=== PATIENT | female | born 1940 | race Caucasian/White ===

== ENCOUNTER → 2023-07-05 13:57 | Outpatient (REF) | payer OTHER, SELFPAY | LOC: WDC 13:57 | PROVIDERS: ATTENDING PHYSICIAN Family Medicine | DX: Z12.31 Encounter for screening mammogram for malignant neoplasm of breast (principal) | CPT/HCPCS: 77063; 77067 ==

== ENCOUNTER 2024-02-17 23:29 | Emergency (ER) | payer OTHER, SELFPAY ==
[2024-02-17 23:32] VITALS: BP 160/80; BMI 23.5
[2024-02-17 23:33] VITALS: BP 160/80
--- NOTE | 2024-02-17 23:52 | ED.MUSCINJ ---
HPI-Injury
General
Chief Complaint: Fall
Source: patient
Exam Limitations: none
Time Seen by Provider: 02/17/24 23:43
History of Present Illness-Injury
Is this injury a work related problem?: No
Is pt an associate of [facility]?: No
Initial Injury comments:
This is a 84 year old female that comes in by ambulance with c/o left shoulder pain. States that she was closing the bedroom door and she fell. States that she was unable to get up. States that she did not hit her head or have any LOC. Denies any
fever, chills, chest pain, SOB, abd pain, nausea, vomiting, diarrhea, headache, dizziness, urinary burning.
Past History
Past History
ED Past Medical History: HTN, Hypercholesterolemia and Other (glaucoma, Macular degeneration)
ED Past Surgical History: Appendectomy, Gynecological (Hysterectomy) and Other (Eye surgery,)
Social History
Tobacco: Non-smoker
Alcohol: Occasional
Drug: None
Personal:
Living: with family
Family History
Family History: Other (Mother and sister with gallbladder disease but)
Review of Systems
Review of Systems
All Other Systems: ROS reviewed and negative except as documented in HPI and ROS
Constitutional: Reports no symptoms; Denies fever or chills
EENT: Reports no symptoms
Respiratory: Reports no symptoms; Denies cough or trouble breathing
Cardiac: Reports no symptoms; Denies chest pain
ABD/GI: Reports no symptoms; Denies abdominal pain, nausea, vomiting or diarrhea
: Reports no symptoms; Denies dysuria, frequency or urgency
Musculoskeletal: Reports joint pain (Left shoulder pain)
Skin: Reports no symptoms
Neurological: Reports no symptoms; Denies dizzy or headache
Psychiatric: Reports no symptoms
Musculoskeletal Injury Exam
Musculoskeletal Injury Exam
Left Anterior Shoulder:
Pain with Movement?: Mild
Tender to palpation?: Mild
Soft tissue swelling?: Mild
External deformity and angulation?: Mild
Joint effusion?: None
Contusion?: None
Hematoma-local bleeding into tissue?: None
Strain- Sprain- Tear (Connective tissue injury)?: None
Crepitus with movement?: No
Joint instability?: Yes
Malalignment/deformity?: Yes
Range of motion: Limited (Due to pain)
Distal skin color and temperature: normal-warm & good color
Capillary Refill: normal
Normal distal neurovascular exam?: Yes
Phy Exam
General Physical Exam
General Presentation: mild distress
General age: appears stated age
General Skin: warm and dry
General Habitus: elderly
General Mental: alert
General Hydration: appears well hydrated
ENT Exam
ENT Exam: TM's normal, pharynx normal and neck supple
Eye Exam
Eye Exam: EOMI
Cardiovascular Exam
Cardiovascular Exam: regular rate/rhythm, normal peripheral pulses and other (Murmur)
Pulmonary Exam
Pulmonary Exam: no respiratory distress, no rales, chest non tender, no rhonchi, no wheezing, no cough and other (Fine crackles at bases)
Gastrointestinal Exam
Gastrointestinal Exam: normal bowel sounds, non tender, soft, no organomegaly, no pulsatile mass and non distended
Musculoskeletal Exam
Musculoskeletal Exam: other (Left shoulder tenderness with limited ROM, Patient can move fingers, wrist and flex elbow with some shoulder discomfort. )
Skin Exam
Skin Exam: normal color, warm/dry, no rash and no petechia
Psychiatric Exam
Psychiatric Exam: normal mood/affect
Injury Course
Orders/Labs/Results
Orders:
Orders
02/17/24 23:52
Acetaminophen [Tylenol] 1,000 mg PO NOW STA
02/18/24 00:00
CR Shoulder - Left Min 2 View* Urgent
Reason For Exam: Fall, Left shoulder pain
02/18/24 01:06
Sling Left-Treatment ONCE
MDM/Problems Addressed
Differential Diagnosis Includes:
fracture shoulder, Shoulder dislocation.
MDM/Problems Addressed:
This is a 84 year old female that comes in with c/o fall. States that she fell on the left shoulder and then she was unable to get up.
Will get x-ray of the left shoulder and medicate for pain
back into see patient and family. Explained that she does have a fracture of the left shoulder. Will place patient in a sling and have patient follow up with the surgical specialist. Ice to the shoulder to help control pain. patient can alternate
with Tylenol 1000mg every 6 hours for pain and Ibuprofen 600mg every 6 hours with food. Patient to return with any concerns.
Chronic conditions affecting care:
NA
Acute Exacerbation and/or Progression of Chronic Illness:
NA
*Radiology
Radiology exam reviewed: preliminary read by ED provider ( LEFT SHOULDER= Proximal humeral head fracture)
*Pulse Oximetry
Patient hypoxic: no
*EKG
Interpreted by ED Provider?: NA
Rate: EKG- N/A
*Ship Design Teacher Interpretation
Rate: Ship Design Teacher- N/A
*Critical Care Note
Total Time (30-74mins, 75-104mins- exclusive of procedures): Not Applicable
ED Attending Note
-
Portions of this chart may have been created with voice recognition software.� Occasional wrong word or��sound alike� substitutions may have occurred due to the inherent limitations of voice recognition software.
Discharge Plan
Departure
Patient Disposition: Home (Routine Discharge)
Date of Disposition: 02/18/24
Time of Disposition: 01:09
Patient with high blood pressure during this ER visit?: Yes
Condition: Good
Covid-19: Not Applicable
Discharge Problem:
Fracture of left upper limb
Instructions: Preventing falls in adults, How to Use a Shoulder Sling, Upper Arm Fracture ED, BLOOD PRESSURE
Prescriptions:
No Action
atorvastatin 10 MG tablet
10 mg PO DAILY
aspirin 81 MG tablet,chewable
81 mg PO DAILY
metoprolol succinate 50 MG tablet extended release 24 hr
50 mg PO DAILY
lisinopril 20 MG tablet
20 mg PO DAILY
bimatoprost [Lumigan] 1 DROP drops
1 drp BOTH EYES HS
allopurinol 300 MG tablet
300 mg PO DAILY
Centrum Silver 1 EACH tablet
1 tab PO DAILY
calcium carbonate [Oyster Shell Calcium 500] 500 MG tablet
500 mg PO TID
RisaQuad 1 CAP capsule
1 cap PO BID Qty: 30 0RF
flaxseed oil 1,000 mg Capsule
1,000 mg PO BID
allopurinol 300 mg Tablet
300 mg PO DAILY
dorzolamide 2 % Drops
1 drp OPHTHALMIC (EYE) BID
Rocklatan 0.02-0.005 % Drops
1 drp OPHTHALMIC (EYE) QPM
iVizia (PF) 0.5 % Drops
OPHTHALMIC (EYE)
Metamucil
Prevacid
timolol maleate
Referrals:
Eugene Shetty MD [Active] - Follow up in 2-3 days
Steven Felix MD [Family Provider] -
Activity Restrictions/Additional Instructions:
As discussed, you have a fracture of the proximal humeral head. Please wear the sling when you are up moving around. Remove the sling to sleep and rest your arm on a pillow. Please call the Orthopedic office tomorrow and get into see the Orthopedic
specialist. You may use Tylenol 1000mg every 6 hours for pain and alternate with Ibuprofen 600mg every 6 hours with food for pain. Please use ice to the shoulder to help decrease the pain. IF YOU HAVE INCREASED OR CHANGING PAIN, OR YOU HAVE ANY
OTHER CONCERNS PLEASE RETURN TO THE EMERGNCY ROOM.
Interventions
Interventions:
*Risk Screen - Suicide Last Done: 02/17/24 23:32
*General Assessment Last Done: 02/17/24 23:32
*Neglect/Abuse Screening Last Done: 02/17/24 23:32
*ED COVID-19 Vaccine History Last Done: 02/17/24 23:32
ED-Musculoskeletal Assessment Last Done: 02/17/24 23:32
ED- Neurological Assessment Last Done: 02/17/24 23:32
ED-Skin Assessment Last Done: 02/17/24 23:32
Discharge Date and Time
Print Language: BELIZEAN
[2024-02-17] MEDS: TYLENOL 1000 MG PO (23:54)
[2024-02-18 00:38] VITALS: BP 155/68
== END 2024-02-18 01:28 | disposition home or self-care (01) ==
LOC: EMR 23:29
PROVIDERS: EMERGENCY PHYSICIAN Emergency Medicine; FAMILY PHYSICIAN Family Medicine
DX: S42.202A Unspecified fracture of upper end of left humerus, initial encounter for closed fracture (principal); W19.XXXA Unspecified fall, initial encounter; I10 Essential (primary) hypertension
CPT/HCPCS: 99283; 73030

== ENCOUNTER 2024-03-14 20:19 | Emergency (ER) | payer OTHER, SELFPAY ==
[2024-03-14 20:22] VITALS: BP 149/61
[2024-03-14 21:00] VITALS: BP 143/61
--- NOTE | 2024-03-14 21:28 | ED.MUSCINJ ---
HPI-Injury
General
Chief Complaint: Fall
Source: patient and records
Exam Limitations: none
Time Seen by Provider: 03/14/24 21:13
Nursing documentation reviewed up to this point in time: agreed with
History of Present Illness-Injury
Is this injury a work related problem?: No
Is pt an associate of [facility]?: No
Initial Injury comments:
84-year female left shoulder pain status post fall few weeks ago seen here had a nondisplaced humerus fracture followed up with orthopedics wound was healing well, scheduled for an x-ray next week using her sling occasionally, pain is worse at night
no fevers, has hydrocodone not terribly effective for her, thus unclear how much she is taking no pain now when she is resting
Past History
Past History
ED Past Medical History: HTN, Hypercholesterolemia and Other (glaucoma, Macular degeneration)
ED Past Surgical History: Appendectomy, Gynecological (Hysterectomy) and Other (Eye surgery,)
Social History
Tobacco: Non-smoker
Alcohol: Occasional
Drug: None
Personal:
Living: with family
Family History
Family History: Other (Mother and sister with gallbladder disease but)
Review of Systems
Review of Systems
All Other Systems: Not applicable
ABD/GI: Reports no symptoms
: Reports no symptoms
Musculoskeletal: Reports joint pain
Phy Exam
Physical Exam
Physical Exam:
Physical Exam
General: no apparent distress, not acutely ill
Neck: No jaundice no tongue bite,
Heart: s1/s2 regular rate and rhythm, no murmur. equal radial pulses.
Lungs: no acute respiratory distress.
Neuro: alert and oriented. no focal neurological deficits
Skin: no rash
Psychiatric: well kept. interactive and cooperative
Extremities: Minimal pain around the left shoulder ecchymosis in the left mid humerus area strong radial pulse bilaterally
Injury Course
Orders/Labs/Results
Orders:
Orders
03/14/24 21:10
Humerus, Left 2 Views [CR Humerus - Left Min 2 Views*] Urgent
Comment:
Reason For Exam: Follow-up fracture
03/14/24 21:23
Ondansetron Orally Disint [Zofran Odt (Orally Disintegrating)] 4 mg PO NOW STA
Oxycodone [Roxicodone] 5 mg PO NOW STA
MDM/Problems Addressed
Differential Diagnosis Includes:
Pain from healing fracture late onset delayed displaced fracture, contusion
MDM/Problems Addressed:
Fracture pain
*Radiology
Radiology exam reviewed: preliminary read by ED provider
*Pulse Oximetry
Patient hypoxic: no
*Critical Care Note
Total Time (30-74mins, 75-104mins- exclusive of procedures): Not Applicable
Update Note
Update Note:
Medications reviewed with patient she wants something to help her at nighttime sounds like hydrocodone is not working very well, will encouraged her to sleep propped up use her sling will give her some oxycodone with stool softeners and Zofran
X-ray noted, question expected changes/healing, prior x-ray noted not terribly different
ED Attending Note
-
Portions of this chart may have been created with voice recognition software.� Occasional wrong word or��sound alike� substitutions may have occurred due to the inherent limitations of voice recognition software.
Discharge Plan
Departure
Patient Disposition: Home (Routine Discharge)
Date of Disposition: 03/14/24
Time of Disposition: 21:56
Patient with high blood pressure during this ER visit?: No
Condition: Good
Discharge Problem:
Fracture, humerus closed
Prescriptions:
No Action
atorvastatin 10 MG tablet
10 mg PO DAILY
aspirin 81 MG tablet,chewable
81 mg PO DAILY
metoprolol succinate 50 MG tablet extended release 24 hr
50 mg PO DAILY
lisinopril 20 MG tablet
20 mg PO DAILY
allopurinol 300 MG tablet
300 mg PO DAILY
Centrum Silver 1 EACH tablet
1 tab PO DAILY
calcium carbonate [Oyster Shell Calcium 500] 500 MG tablet
500 mg PO TID
flaxseed oil 1,000 mg Capsule
1,000 mg PO BID
dorzolamide 2 % Drops
1 drp OPHTHALMIC (EYE) BID
Rocklatan 0.02-0.005 % Drops
1 drp OPHTHALMIC (EYE) QPM
iVizia (PF) 0.5 % Drops
OPHTHALMIC (EYE)
Metamucil
PO DAILY
Prevacid
PO DAILY
timolol maleate
1 drp BOTH EYES DAILY
raloxifene 60 mg Tablet
60 mg PO DAILY
Probiotic
PO DAILY
Preservision
120 mg PO DAILY
Referrals:
Steven Felix MD [Family Provider] - Follow up in 10 days
Activity Restrictions/Additional Instructions:
You can use oxycodone at nighttime, use a stool softener when you are using oxycodone do not mix with your other pain medications
Follow-up with your orthopedist as scheduled
Use your sling for comfort sit up in a chair or bed with pillows for comfort
Interventions
Interventions:
*Risk Screen - Suicide Last Done: 03/14/24 20:22
*General Assessment Last Done: 03/14/24 20:22
*Neglect/Abuse Screening Last Done: 03/14/24 20:22
ED- Fall Risk Assessment Last Done: 03/14/24 21:48
*ED COVID-19 Vaccine History Last Done: 03/14/24 20:22
ED-Musculoskeletal Assessment Last Done: 03/14/24 20:29
ED- Neurological Assessment Last Done: 03/14/24 20:29
ED-Skin Assessment Last Done: 03/14/24 20:29
Discharge Date and Time
Print Language: DIVEHI
[2024-03-14] MEDS: ROXICODONE 5 MG PO (21:44)
[2024-03-14] MEDS: ZOFRAN ODT (ORALLY DISINTEGRATING) 4 MG PO (21:44)
[2024-03-14 22:00] VITALS: BP 138/54
== END 2024-03-14 22:15 | disposition home or self-care (01) ==
LOC: EMR 20:19
PROVIDERS: EMERGENCY PHYSICIAN Emergency Medicine; FAMILY PHYSICIAN Family Medicine
DX: S42.292A Other displaced fracture of upper end of left humerus, initial encounter for closed fracture (principal); W19.XXXA Unspecified fall, initial encounter
CPT/HCPCS: 99283; 73060

== ENCOUNTER 2024-03-18 15:41 | Inpatient (IN) | payer OTHER, SELFPAY ==
[2024-03-18] VITALS (32 sets, daily range): BP systolic 105–152; BP diastolic 57–77; BMI 22.3; BMI 22.1
[2024-03-18 09:42] LABS: % Basophils 0.2 % (0-2); % Immature Granulocytes 0.6 % (0-0.5); % Lymphocytes 11.7 % (20.5-51.1); % Monocytes 3.9 % (1.7-9.3); % Neutrophils 82.6 % (42.2-75.2); Absolute Eosinophils 0.1 10^3/uL (0-0.7); Absolute Immature Granulocytes 0.1 10^3/uL (0-0.05); Absolute Lymphocytes 1.6 10^3/uL (1.2-3.4); Absolute Monocytes 0.5 10^3/uL (0.1-0.6); Absolute Neutrophils 11.5 10^3/uL (1.4-6.5); Hematocrit 25.8 % (37.0-47.0); Hemoglobin 8.6 g/dL (12.0-16.0); Mean Corp Hgb Conc. 33.3 g/dL (33.0-37.0); Mean Corpuscular Hgb 33.2 pg (27.0-31.0); Mean Corpuscular Volume 99.6 fL (81.0-99.0); Mean Platelet Volume 12.5 fL (7.4-10.4); Nucleated Red Blood Cells % 0 %; Platelet Count 139 10^3/uL (130-400); Red Blood Cell Count 2.59 10^6/uL (4.20-5.40); Red Cell Dist. Width 14.6 % (11.5-14.5)
--- NOTE | 2024-03-18 09:50 | ED.GENMED ---
History of Present Illness
General
Chief Complaint: Abdominal Pain
Source: patient
Time Seen by Provider: 03/18/24 09:38
History of Present Illness
History of Present Illness:
84-year-old female presents to the emergency room complaining of 'feeling terrible'. Patient has been feeling unwell for the past 3 to 4 days. She feels nauseous, has no appetite and feels constipated. She has also been experiencing some
abdominal pain over the past couple days. She denies any urinary symptoms. She is retching but has not brought up any vomitus. Patient states that her family has been taking her temperature at home and it has been negative. She has a sore
throat. Patient also has some pain in her left shoulder intermittently. She had a fall with a fracture of the humerus about a month ago. Of note the patient was here in the emergency room about 4 days ago and was prescribed oxycodone. Symptoms
seem to have worsened with the initiation of the oxycodone.
Past History
Past History
ED Past Medical History: HTN, Hypercholesterolemia and Other (glaucoma, Macular degeneration)
ED Past Surgical History: Appendectomy, Gynecological (Hysterectomy) and Other (Eye surgery,)
Social History
Tobacco: Non-smoker
Alcohol: Occasional
Drug: None
Personal:
Living: with family
Family History
Family History: Other (Mother and sister with gallbladder disease but)
Phy Exam
Physical Exam
Physical Exam:
General: Awake, Alert, Oriented X3. In no distress but appears unwell
Vitals: Mildly tachycardic
Head: Atraumatic
Eyes: Pupils equal, EOMI
Throat: Airway intact, no exudates, dry mucosa
Neck: Trachea midline
Lungs: Clear and equal b/l
Heart: Regular rate, no murmurs
Abd: Soft, tender left upper abdomen, no pulsatile mass
Neuro: Nonfocal
Skin: Warm, dry, no rash
Extremities: pulses equal b/l, no edema
Course
Orders/Labs/Results
Orders:
Orders
03/18/24 09:24
Electrocardiogram (*1) Urgent
Reason for Study: Abdominal Pain
EKG- Treatment ONCE
03/18/24 09:28
Complete Blood Count/With Diff Urgent
Comprehensive Metabolic Panel Urgent
Lipase Urgent
03/18/24 09:47
Urinalysis Reflex To Culture Urgent
0.9% Sodium Chloride 1000 ml [Nss] 1,000 ml IV BOLUS
Iohexol [Omnipaque] See Protocol PO NOW STA
Ondansetron Injectable [Zofran] 4 mg IV NOW STA
03/18/24 10:06
COVID-19 Antigen Urgent
Source: Nasal Swab
Influenza A+B Rapid Molecular Urgent
CRISELDA Source: Nasal Swab
Specimen Description:
03/18/24 10:17
CT Abd/pel Without Iv Or Oral Urgent
Comment:
Reason For Exam: abd pain, acute renal failure
Bladder Scan- Treatment ONCE
03/18/24 10:19
Dextrose 50%-Water [Dextrose 50% Syringe] 12.5 grams IV [id number] PRN
Dextrose 50%-Water [Dextrose 50% Syringe] 25 grams IV NOW STA
Insulin Human Regular [Novolin R] 5 units IV NOW STA
03/18/24 10:23
Bedside Glucose PRE IV Insulin- HyperK+ NOW
03/18/24 10:44
CR Chest Portable - 1 View Urgent
Comment:
Reason For Exam: acute renal failure
Reason Study Needs to be Portable: Patient Unstable
03/18/24 10:51
Dextrose 5%/Water 1000 ml [D5w] 1,000 ml Sodium Bicarbonate 150 meq IV 200 mls/hr
03/18/24 11:53
Bedside Glucose POST IV Insulin- HyperK+ Q1HX2,Q2HX2
03/18/24 13:05
Potassium Urgent
Comment: draw 2 hours after regular insulin IV administration
Venous Blood Gas Urgent
%Oxygen/Room Air: 21
03/18/24 13:33
Urine Creatinine Urgent
Urine Protein/Creat Ratio (Random) [Protein/Creat Ratio (Random)] Urgent
Urine Sodium Urgent
03/18/24 13:49
Ellis Placement- Treatment ONCE
Reason for insertion: Acute Kidney Injury
03/18/24 13:54
Add On- LAB Urgent
Comments:: Add to today's labs
Tests Added?: HBSAG,HBSAB,Hepatitis C Antibody,Hepatitis B Core Total Antibody.
03/18/24 13:57
Ellis Catheter [Catheter- Indwelling] As Directed
Reason for insertion: Acute Kidney Injury
Discontinue Date/Time: 03/21/24 0600
Intake/ Output As Directed
Frequency: Per unit guidelines
Comment: strict intake and output monitoring
Weight As Directed
Frequency: Daily
03/18/24 14:00
Admit/Transfer Patient As Directed
Co-Sign Provider:
Level of Care: Inpatient admission
Assign to:: ICU
Physician / Group: Aniyah
Diagnosis: LINDSEY
Reason for Hospitalization: Above
Expected length of stay greater than two midnights?: Yes
ELOS- Estimated Length of Stay in days: 2
I certify the patient meets the requirements for IP care: Yes
03/18/24 14:01
PRN Pain Medication Management As Directed
May give lesser potent ordered pain med per pt: Yes
preference::
Protocol:: Medication orders for pain may be administered in a
manner that supports deferring to patient preference
when the pt is:
- Requesting an ordered lesser potent pain medication.
Least to most potent pain medications are defined
as: acetaminophen < NSAID < tramadol < opioids
(morphine, oxycodone, hydromorphone).
- Requesting a lesser dose of the same medication IF
ORDERED.
- Requesting a less intrusive route of administration
if both routes are prescribed by the provider (PO <
IV).
03/18/24 14:05
Code Status As Directed
Resuscitation Status: Full Code
03/18/24 14:19
Consult Interventional Radiology [IRAD CONSULT] Urgent
Consulting Provider: Pedro Luis Miller
Was physician already notified: Yes
Reason for Consult/Procedure: Severe LINDSEY with severe acidosis; HD catheter needed
Acknowledgement that appropriate orders are entered: N/A
03/18/24 14:22
IRAD CONSULT Urgent
Consulting Provider: Adam Cerda
Was physician already notified: Yes
Reason for Consult/Procedure: Acute kidney injury with metabolic acidosis severe azotemia
Acknowledgement that appropriate orders are entered: Yes
03/18/24 14:23
CMP [Comprehensive Metabolic Panel] Stat
03/18/24 14:25
PT/INR [Prothrombin Time] Stat
PTT Stat
03/18/24 14:36
Mannitol 25% 12.5 grams IV HD-Q1HPRN PRN
Hemodialysis treatment As Directed
Treatment date:: 03/18/24
Treatment type: Hemodialysis
Ultrafiltration (kg): 0
Treatment time (duration): 2 hours
Use dialysis access:: Temporary Cath
Dialyzer:: Optiflux 160
Blood flow rate minimum: 250
Blood flow rate maximum: 250
Dialysis flow rate: Other
Dialysis flow rate other:: 400
Dialysate temperature: 37 degrees Celsius
Sodium (Na): 135
Potassium (K): 2
Calcium (Ca): 2.5
Bicarbonate (HCO3): 40
03/18/24 16:30
Dextrose 5%/Water 1000 ml [D5w] 1,000 ml Sodium Bicarbonate 150 meq IV 200 mls/hr
Abnormal Lab Results
03/18/24 03/18/24 03/18/24
09:28 10:44 11:56
WBC 14.0 H 10^3/uL
(4.8-10.8)
RBC 2.59 L 10^6/uL
(4.20-5.40)
Hgb 8.6 L g/dL
(12.0-16.0)
Hct 25.8 L %
(37.0-47.0)
MCV 99.6 H fL
(81.0-99.0)
MCH 33.2 H pg
(27.0-31.0)
RDW 14.6 H %
(11.5-14.5)
MPV 12.5 H fL
(7.4-10.4)
Abs Immat Gran (auto) 0.1 H 10^3/uL
(0-0.05)
Absolute Neuts (auto) 11.5 H 10^3/uL
(1.4-6.5)
Immature Gran % 0.6 H %
(0-0.5)
Neutrophils % 82.6 H %
(42.2-75.2)
Lymphocytes % 11.7 L %
(20.5-51.1)
VBG pH
VBG pCO2
VBG pO2
VBG HCO3
Potassium 5.8 H mmol/L
(3.5-5.1)
Chloride 109 H mmol/L
(98-107)
Carbon Dioxide 5 L* mmol/L
(22-30)
BUN > 240 H* mg/dl
(7-17)
Creatinine 12.7 H* mg/dL
(0.6-1.0)
Calcium 8.2 L mg/dl
(8.4-10.2)
Lipase 3713 H* U/L
(23-300)
POC Glucose 113 H mg/dl 217 H mg/dl
(70-99) (70-99)
03/18/24 03/18/24
13:05 13:13
WBC
RBC
Hgb
Hct
MCV
MCH
RDW
MPV
Abs Immat Gran (auto)
Absolute Neuts (auto)
Immature Gran %
Neutrophils %
Lymphocytes %
VBG pH 7.18 L*
(7.32-7.43)
VBG pCO2 29 L mmHg
(35-48)
VBG pO2 137 H mmHg
(30-50)
VBG HCO3 10.8 L mmol/L
(22-27)
Potassium
Chloride
Carbon Dioxide
BUN
Creatinine
Calcium
Lipase
POC Glucose 251 H mg/dl
(70-99)
03/18/24 09:28
Vital Signs
Initial and Last Documented VS:
Initial Vital Signs
BP
152/64
03/18/24 09:23
Last Documented Vital Signs
Temp Pulse Resp BP Pulse Ox
97.8 F 118 12 139/63 99
03/18/24 10:02 03/18/24 13:15 03/18/24 13:15 03/18/24 13:00 03/18/24 13:15
MDM/Problems Addressed
Differential Diagnosis Includes:
Dehydration, adverse medication effect from oxycodone, urinary tract infection, electrolyte abnormality
MDM/Problems Addressed:
Patient presents with fatigue, nausea, anorexia. Labs show the patient has a significantly elevated white blood cell count as well as a anemia with a hemoglobin of 8.6. Platelet count is normal. Chemistry showed show acute renal failure with mild
hyperkalemia. Patient also has a significant metabolic acidosis. Anion gap is 31. BUN is greater than 240 with a creatinine of 12.7. IV fluid initiated. Bicarb drip initiated. Nephrology consult requested as I suspect the patient will require
urgent to emergent dialysis. Hyperkalemia temporized with IV dextrose and insulin as well as the bicarb drip. EKG shows no peaked getting of the T waves and his intervals are normal so IV calcium not indicated at this time. CT of the abdomen
pelvis obtained to exclude obstructive uropathy. There is no evidence of hydronephrosis. Some question as to sigmoid diverticulitis. Upon questioning the patient does endorse taking ibuprofen for shoulder pain.
*Radiology
Radiology exam reviewed: radiology read reviewed
*Pulse Oximetry
Patient hypoxic: no
*EKG
Interpreted by ED Provider?: Yes
Heart Rate: 108
Rate: tachycardiac
Rhythm: sinus tachycardia
Interval: first degree heart block
QRS Pattern: normal QRS
Ischemia: non-specific ST changes
*Human Resources Mgr Interpretation
Rate: tachycardiac
Interpretation: abnormal
Rhythm: sinus tachycardia
*Critical Care Note
Total Time (30-74mins, 75-104mins- exclusive of procedures): 45 min
comment:
Critical care statement: A total of 45 minutes of critical care time was provided for this patient. This includes management of unstable vital signs, evaluation of the patient at bedside, reviewing the patient's pertinent medical records, discussion
with consultants, review of old EKGs and review of pertinent medical records. This time with separate from time utilized to perform the aforementioned documented procedures
Data Reviewed
Review of Other/Old Records Reveals: Labs (Most recent labs in the patient's chart which were from 2012)
Patient Management
Social determinants of health affecting care: Strong social support
Discussion with other providers: Hospitalist and [facility]
ED Attending Note
-
Portions of this chart may have been created with voice recognition software.� Occasional wrong word or��sound alike� substitutions may have occurred due to the inherent limitations of voice recognition software.
Discharge Plan
Departure
Patient Disposition: Admit
Date of Disposition: 03/18/24
Time of Disposition: 10:45
Admit to: IMU
Presentation/result/management discussed w/ accepting MD/DO: Hospitalist
Condition: Serious
Discharge Problem:
Acute renal failure (ARF)
Prescriptions:
No Action
atorvastatin 10 MG tablet
10 mg PO DAILY
aspirin 81 MG tablet,chewable
81 mg PO DAILY
metoprolol succinate 50 MG tablet extended release 24 hr
50 mg PO DAILY
allopurinol 300 MG tablet
300 mg PO DAILY
Centrum Silver 1 EACH tablet
1 tab PO DAILY
calcium carbonate [Oyster Shell Calcium 500] 500 MG tablet
500 mg PO TID
Metamucil Packet
1 packet PO DAILY
flaxseed oil 1,000 mg Capsule
1,000 mg PO BID
timolol 0.5 % Drops
1 drp BOTH EYES DAILY
lansoprazole [Prevacid] 15 mg Capsule,Delayed Release(Dr/Ec)
15 mg PO DAILY
dorzolamide 2 % Drops
1 drp BOTH EYES BID
Rocklatan 0.02-0.005 % Drops
1 drp BOTH EYES QPM
raloxifene 60 mg Tablet
60 mg PO DAILY
Visbiome 112.5 billion cell Capsule
1 cap PO DAILY
PreserVision AREDS 2,148 mcg-113 mg-45 mg-17.4mg Tablet
1 tab PO BID
sennosides [senna] 8.6 mg Tablet
17.2 mg PO BID
polyethylene glycol 3350 [Miralax] 17 gram Powder In Packet
17 g PO DAILY
lisinopril-hydrochlorothiazide 20-12.5 mg Tablet
1 tab PO DAILY
hydrocodone-acetaminophen 5-325 mg Tablet
0.5 tab PO DAILYPRN PRN (Reason: severe pains)
famotidine [Pepcid] 20 mg Tablet
20 mg PO BID
bismuth subsalicylate [Pepto-Bismol] 262 mg/15 mL Suspension
262 mg PO DAILYPRN PRN (Reason: stoamch issuses)
oxycodone 5 mg Tablet
5 mg PO HSPRN PRN (Reason: sereve pain)
iVizia (PF) 0.5 % Drops
1 drp ophthalmic (eye) Q3H
ondansetron 4 mg tablet,disintegrating
4 mg PO Q8HPRN PRN (Reason: nausea and vomiting)
Referrals:
Steven Felix MD [Family Provider] -
Interventions
Interventions:
*Risk Screen - Suicide Last Done: 03/18/24 09:24
*General Assessment Last Done: 03/18/24 09:24
*Neglect/Abuse Screening Last Done: 03/18/24 09:24
ED- Fall Risk Assessment Last Done: 03/18/24 09:41
*ED COVID-19 Vaccine History Last Done: 03/18/24 09:24
MP-Idrpgo-Bbxdxpwudt Assessment Last Done: 03/18/24 09:41
Discharge Date and Time
Print Language: WALLISIAN
[2024-03-18] MEDS: OMNIPAQUE 50 ML PO (09:52)
[2024-03-18] MEDS: ZOFRAN 4 MG IV ×2 (09:53→19:43)
[2024-03-18] MEDS: NSS 1000 IV (09:53)
[2024-03-18 10:09] LABS: ALT (SGPT) < 10 U/L (0-35); AST (SGOT) 18 U/L (14-36); Albumin 3.9 g/dl (3.5-5.0); Alkaline Phosphatase 74 U/L (38-126); Calcium 8.2 mg/dl (8.4-10.2); Carbon Dioxide 5 mmol/L (22-30); Chloride 109 mmol/L (98-107); Estimated Creatinine Clearance 3 ml/min; Glucose 95 mg/dl (70-99); Potassium 5.8 mmol/L (3.5-5.1); Sodium 145 mmol/L (135-145); Total Bilirubin 0.5 mg/dl (0.2-1.3); Total Protein 6.8 g/dl (6.3-8.2); eGFR 2.63
[2024-03-18 10:23] LABS: Blood Urea Nitrogen > 240 mg/dl (7-17); Lipase 3713 U/L (23-300)
[2024-03-18 10:27] LABS: COVID-19 Antigen Negative (Negative)
[2024-03-18] MEDS: NOVOLIN R 5 UNITS IV (10:44)
[2024-03-18] MEDS: DEXTROSE 50% SYRINGE 25 GRAMS IV (10:44)
[2024-03-18 10:46] LABS: Glucose - Point of Care 113 mg/dl (70-99)
[2024-03-18] MEDS: SODIUM BICARBONATE 1150 MEQ IV ×2 (11:51→17:28)
[2024-03-18 11:58] LABS: Glucose - Point of Care 217 mg/dl (70-99)
--- NOTE | 2024-03-18 12:50 | W.CON.NEPH ---
Consultation
-
Date/Time Consultation Requested: 03/18/2024 at 11 AM
Date/Time Consultation Performed: 03/18/2020 4:50 PM
Requesting Provider: Dr. Romero
Performing Provider: Dr. Adam Cerda
Reason for Consultation: acute kidney injury
Medical History
-
Chief Complaint: acute kidney injury
History of Present Illness:
84-year-old female presents to the emergency room complaining not feeling well with nausea and vomiting over a four-day period she's not eaten over this period of time she's been taking Motrin for a recent fall and a left humerus fracture should
been taking Motrin 1 to 2 times a day for three weeks
renal supervisor counseling and guidance for acute kidney injury Seng, hyperkalemia, metabolic acidosis
Over last three or four weeks if she is not taking any of her medications as well including antihypertensive medications
her family was at the bedside in the emergency room help with history including her son and her
otherwise denies any chest pain shortness of breath she is a mild abdominal pain denies any hematuria.
Past Medical History
includes hyperlipidemia, hypertension, appendectomy
Social History
is non-smoker only
Tobacco: Non-Smoker
Family History
no family history of renal disease
Allergies / Home Medications
Allergy/AdvReac Type Severity Reaction Status Date / Time
No Known Allergies Allergy Verified 02/17/24 23:31
�Medication �Instructions �Recorded �Confirmed �Type
aspirin 81 mg chewable tablet 81 mg PO DAILY 01/01/13 03/18/24 History
atorvastatin 10 mg tablet 10 mg PO DAILY 01/01/13 03/18/24 History
allopurinol 300 mg tablet 300 mg PO DAILY 01/02/13 03/18/24 History
calcium carbonate (Oyster Shell 500 mg PO TID 01/02/13 03/18/24 History
Calcium 500)
metoprolol succinate 50 mg 50 mg PO DAILY 01/02/13 03/18/24 History
tablet,extended release 24 hr
usncgwps-kbd-ohcwb acid 0.4 1 tab PO DAILY 01/02/13 03/18/24 History
mg-lycopene 300 mcg-lutein 250 mcg
tablet (Centrum Silver)
dorzolamide 2 % eye drops 1 drp BOTH EYES BID 02/17/24 03/18/24 History
flaxseed oil 1,000 mg capsule 1,000 mg PO BID 02/17/24 03/18/24 History
lansoprazole 15 mg capsule,delayed 15 mg PO DAILY 02/17/24 03/18/24 History
release
netarsudil 0.02 %-latanoprost 1 drp BOTH EYES QPM 02/17/24 03/18/24 History
0.005 % eye drops (Rocklatan)
psyllium 1 packet PO DAILY 02/17/24 03/18/24 History
timolol 0.5 % eye drops 1 drp BOTH EYES DAILY 02/17/24 03/18/24 History
Lactobac no.2-Bifidobac no.1-S. 1 cap PO DAILY 03/14/24 03/18/24 History
thermo 112.5 billion cell capsule
(Visbiome)
raloxifene 60 mg tablet 60 mg PO DAILY 03/14/24 03/18/24 History
vitamins A,C,I-zehx-bporlo 2,148 1 tab PO BID 03/14/24 03/18/24 History
mcg-113 mg-45 mg-17.4 mg tablet
(PreserVision AREDS)
bismuth subsalicylate 262 mg/15 mL 262 mg PO DAILYPRN PRN stoamch 03/18/24 03/18/24 History
oral suspension (Pepto-Bismol) issuses
famotidine 20 mg tablet (Pepcid) 20 mg PO BID 03/18/24 03/18/24 History
hydrocodone 5 mg-acetaminophen 325 0.5 tab PO DAILYPRN PRN severe 03/18/24 03/18/24 History
mg tablet pains
lisinopril 20 1 tab PO DAILY 03/18/24 03/18/24 History
mg-hydrochlorothiazide 12.5 mg
tablet
ondansetron 4 mg disintegrating 4 mg PO Q8HPRN PRN nausea and 03/18/24 03/18/24 History
tablet vomiting
oxycodone 5 mg tablet 5 mg PO HSPRN PRN sereve pain 03/18/24 03/18/24 History
polyethylene glycol 3350 17 gram 17 g PO DAILY 03/18/24 03/18/24 History
oral powder packet (Miralax)
povidone (PF) 0.5 % eye drops 1 drp ophthalmic (eye) Q3H 03/18/24 03/18/24 History
(iVizia (PF))
sennosides 8.6 mg tablet (senna) 17.2 mg PO BID 03/18/24 03/18/24 History
Review of Systems
-
nausea and vomiting
All other systems: Negative unless noted
Physical Exam
Vital Signs
Vital Signs
Temp Pulse Resp BP Pulse Ox
97.8 F 113 13 148/70 100
03/18/24 10:02 03/18/24 11:15 03/18/24 11:15 03/18/24 10:00 03/18/24 11:00
Lab Results
WBC 14.0 10^3/uL (4.8-10.8) H 03/18/24 09:28
RBC 2.59 10^6/uL (4.20-5.40) L 03/18/24 09:28
Hgb 8.6 g/dL (12.0-16.0) L 03/18/24 09:28
Hct 25.8 % (37.0-47.0) L 03/18/24 09:28
Plt Count 139 10^3/uL (130-400) 03/18/24 09:28
Sodium 145 mmol/L (135-145) 03/18/24 09:
Chloride 109 mmol/L (98-107) H 03/18/24:28
Carbon Dioxide 5 mmol/L (22-30) L* 03/18/24:
BUN > 240 mg/dl (7-17) H* 03/18/24:
Creatinine 12.7 mg/dL (0.6-1.0) H* 03/18/24:
eGFR 2.63 03/18/24:28
Glucose 95 mg/dl (70-99) 03/18/24:
Calcium 8.2 mg/dl (8.4-10.2) L 03/18/24:
Albumin 3.9 g/dl (3.5-5.0) 03/18/24:
Physical Exam
General: Awake, Oriented and Other ( oriented to person and place)
HEENT: EOMI
Respiratory: Clear
Cardiac: S1/S2 and Regular Rate/Rhythm
Abdomen: Other ( mild left lower quadrant tenderness)
Genito-urinary: No Costovertebral Tender
Musculoskeletal: No Clubbing and No Edema
Skin: No Rash
Neuro: Nonfocal/Grossly Intact
Psych: Mood/afflect pleasant
Data Reviewed
-
CT Scan: Image Personally Visualized and interpreted ( no obstructive uropathy)
Labs: Labs Reviewed by me ( potassium 5.8 BUN greater than 250 creatinine 12)
Assessment/Plan
-
84-year-old female presents to the emergency room complaining not feeling well with nausea and vomiting over a four-day period she's not eaten over this period of time she's been taking Motrin for a recent fall and a left humerus fracture should
been taking Motrin 1 to 2 times a day for three weeks
acute kidney injury= presented creatinine 12( creatinine 0.62 in 2015 last record
hyperkalemia= presenting potassium 5.8
acute Gapped metabolic acidosis= presenting bicarbonate 5
nausea vomiting
status post humerus fracture
plan:
acute kidney injury could be from of the daily Motrin use since her humerus fracture Motrin one or [address] Ellis catheter for critical urine output monitoring
continuum sodium bicarbonate drip
temporize potassium= independently he reviewed EKG no PT waves or interval changes
repeat laboratories , if the patient is not being to make a urine she will need dialysis today for her acidosis and significant azotemia
renal dose all medications for GFR less than 10
will communicate this with the primary team
discuss with the emergency room nurse
family is at the bedside dialysis was discussed patient and family agree to proceed with the dialysis as this is an acute event if needed
[2024-03-18 13:15] LABS: Glucose - Point of Care 251 mg/dl (70-99)
[2024-03-18 13:23] LABS: Venous Blood Gas B.E. -16.2 mmol/L (-4 to +4); Venous Blood Gas HCO3 10.8 mmol/L (22-27); Venous Blood Gas O2 Sat % 99.8 %; Venous Blood Gas pCO2 29 mmHg (35-48); Venous Blood Gas pO2 137 mmHg (30-50)
[2024-03-18 13:25] LABS: Potassium 4.9 mmol/L (3.5-5.1)
[2024-03-18 13:30] LABS: Venous Blood Gas pH 7.18 (7.32-7.43)
--- NOTE | 2024-03-18 14:14 | HPS.HSE ---
Family Physician
-
Family Physician: Steven Felix
Chief Complaint
-
Severe fatigue, gastrointestinal symptoms.
History of Present Illness
Patient is 84 years old female with hypertension, dyslipidemia, gout who presents to the emergency room with persistent gastrointestinal symptoms. Patient describes nausea and dry heaves, diffuse abdominal discomfort. She denies any urinary
symptoms. She denies any fever. Patient's hours left fracture close to 3 weeks prior to this admission. She has been taking daily and will, she reports to 3 pills a day. She was recently prescribed hydrocodone and later oxycodone which as per
patient exacerbated her gastrointestinal symptoms. Patient also reports occasional and self-limited episode of epistaxis over the last few days.
Given her overall poor condition, patient made decision to discontinue her blood pressure medications including lisinopril and hydrochlorothiazide. She reports last dose taking about 2 weeks prior to this admission.
While in emergency room patient is mild distress, uncomfortable.
Her bedside ultrasound showed no evidence of retention or hydronephrosis.
Additional evaluation revealed severe metabolic acidosis with mild hyperkalemia.
Given persistent abdominal symptoms CT scan of the abdomen pelvis without IV or oral contrast with findings consistent for possible sigmoid diverticulitis.
Medical History
Past Medical History
Past Medical History: Reports HTN and Hypercholesterolemia; Denies NIDDM
Past Surgical History: Reports None
Social History
Tobacco: Non-smoker
Alcohol: None
Drug: None
Personal:
Living: With Family
Family History
Family History: Not pertinent
Allergies / Home Medications
Allergies reflects when Allergies were last updated in [facility].
Home Medications with original date entered in [facility]
Allergy/Medication List:
Allergies
Allergy/AdvReac Type Severity Reaction Status Date / Time
No Known Allergies Allergy Verified 02/17/24 23:31
Home Medications
aspirin 81 mg chewable tablet 81 mg PO DAILY 01/01/13
atorvastatin 10 mg tablet 10 mg PO DAILY 01/01/13
allopurinol 300 mg tablet 300 mg PO DAILY 01/02/13
calcium carbonate (Oyster Shell Calcium 500) 500 mg PO TID 01/02/13
metoprolol succinate 50 mg tablet,extended release 24 hr 50 mg PO DAILY 01/02/13
txneoqdi-gxn-ooned acid 0.4 mg-lycopene 300 mcg-lutein 250 mcg tablet (Centrum Silver) 1 tab PO DAILY 01/02/13
dorzolamide 2 % eye drops 1 drp BOTH EYES BID 02/17/24
flaxseed oil 1,000 mg capsule 1,000 mg PO BID 02/17/24
lansoprazole 15 mg capsule,delayed release 15 mg PO DAILY 02/17/24
netarsudil 0.02 %-latanoprost 0.005 % eye drops (Rocklatan) 1 drp BOTH EYES QPM 02/17/24
psyllium 1 packet PO DAILY 02/17/24
timolol 0.5 % eye drops 1 drp BOTH EYES DAILY 02/17/24
Lactobac no.2-Bifidobac no.1-S. thermo 112.5 billion cell capsule (Visbiome) 1 cap PO DAILY 03/14/24
raloxifene 60 mg tablet 60 mg PO DAILY 03/14/24
vitamins A,C,L-dfmh-bxnuic 2,148 mcg-113 mg-45 mg-17.4 mg tablet (PreserVision AREDS) 1 tab PO BID 03/14/24
bismuth subsalicylate 262 mg/15 mL oral suspension (Pepto-Bismol) 262 mg PO DAILYPRN PRN stoamch issuses 03/18/24
famotidine 20 mg tablet (Pepcid) 20 mg PO BID 03/18/24
hydrocodone 5 mg-acetaminophen 325 mg tablet 0.5 tab PO DAILYPRN PRN severe pains 03/18/24
lisinopril 20 mg-hydrochlorothiazide 12.5 mg tablet 1 tab PO DAILY 03/18/24
ondansetron 4 mg disintegrating tablet 4 mg PO Q8HPRN PRN nausea and vomiting 03/18/24
oxycodone 5 mg tablet 5 mg PO HSPRN PRN sereve pain 03/18/24
polyethylene glycol 3350 17 gram oral powder packet (Miralax) 17 g PO DAILY 03/18/24
povidone (PF) 0.5 % eye drops (iVizia (PF)) 1 drp ophthalmic (eye) Q3H 03/18/24
sennosides 8.6 mg tablet (senna) 17.2 mg PO BID 03/18/24
Review of Systems
-
A 12 point ROS was completed and negative except as noted: Yes
Cardiac: Reports No Symptoms
Abdomen/GI: Reports See HPI
: Reports See HPI
Physical Exam
Vital Signs
Vital Signs
Temp Pulse Resp BP Pulse Ox
97.8 F 118 12 139/63 99
03/18/24 10:02 03/18/24 13:15 03/18/24 13:15 03/18/24 13:00 03/18/24 13:15
Physical Exam
General: Well Developed, Well Nourished and No Apparent Distress
HEENT: NormoCephalic, Moist mucous membranes and Atraumatic
Respiratory: Clear
Cardiac: S1/S2 and Regular Rhythm; No Murmur or Rub
GI: Soft, Non Tender, Non Distended and Normal Bowel Sounds; No Organomegaly
Rectal: Deferred by Provider
Musculoskeletal: No Clubbing, No Cyanosis and No Edema
Skin: No Rash
Neuro: Nonfocal/grossly intact
Laboratory Results
-
03/18/24 09:28
03/18/24 13:05
Laboratory Results
Total Bilirubin 0.5 mg/dl (0.2-1.3) 03/18/24 09:28
AST 18 U/L (14-36) 03/18/24 09:28
ALT < 10 U/L (0-35) 03/18/24 09:28
Alkaline Phosphatase 74 U/L (38-126) 03/18/24 09:28
Lipase 3713 U/L (23-300) H* 03/18/24 09:28
Impression/Plan
-
IMPRESSION:
Acute kidney injury.
Severe metabolic acidosis
Hyperkalemia.
Persistent gastrointestinal symptoms including nausea, dry heaves, diffuse abdominal pain likely attributed to uremia.
Sigmoid diverticulitis by imaging.
Leukocytosis
Elevated lipase
Other conditions:
Left humeral fracture managed conservatively
Essential hypertension
Dyslipidemia.
Gout
PLAN:
Acute kidney injury
Severe metabolic acidosis/acidemia
Hyperkalemia without EKG changes
Suspected secondary to NSAIDs.
Patient reports stopping lisinopril and HCTZ at least 2 weeks prior to presentation.
ED workup with no evidence of retention, or obstructive uropathy.
Ellis catheter to be placed for strict I's and O's.
UA if possible.
Nephrology consultation
Plan is for initiation of hemodialysis.
Hyperkalemia temporized while in ED
Follow serial BMP
Persistent GI symptoms including nausea, dry heaves, diffuse abdominal pain.
Exam with left lower quadrant tenderness.
Elevated lipase, although with no evidence of pancreatic changes on the CT scan.
Upper GI symptoms suspected secondary to uremia.
Given left lower quadrant tenderness and CT scan findings consistent with sigmoid diverticulitis, will initiate ceftriaxone.
Keep n.p.o. for now
Antiemetics
Anemia, normocytic.
Patient reports epistaxis that possibly related to platelet dysfunction in the settings of uremia.
No evidence of brisk blood loss.
Check iron studies and B12.
Follow hemoglobin.
Essential hypertension
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 Avoid hypotension.
Left humeral fracture treated conservatively.
Analgesia with Tylenol
Consider oxycodone, although monitor for oversedation in the settings of LINDSEY.
Full code
DVT prophylaxis mechanical
--- NOTE | 2024-03-18 14:25 | W.PN.UPDATE ---
Update Note
Progress Note Update
After further evaluation , no urine output. Unlikely improvement in her metabolic acidosis and her moderate uremic symptoms so we will proceed with dialysis. Unable to place Ellis now has PureWick catheter
Discussed again with patient and They agree in agreement
Dialysis catheter ordered
Will dialyze her today
All parties made aware including interventional radiology and dialysis nurse
--- NOTE | 2024-03-18 14:28 | CON.INTV ---
Consultation
Consultation Request
Date/Time Consultation Requested: 03/18/2024 1:56 PM
Date/Time Consultation Performed: 03/18/2024 2:15 PM
Requesting Provider: sabra Philippe
Performing Provider: Lex Negro
Reason for Consultation: Acute Kidney Injury
Medical History
-
Chief Complaint: Abdominal pain
History of Present Illness:
Patient is an 84-year-old female, full code with past medical history of hypertension, dyslipidemia, gout who presented with abdominal pain to the ER. She is here with her family. She describes abdominal pain as diffuse, moderate in intensity, she
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 Abdominal pain is associated with nausea and nonbloody vomiting. No fevers, chills, constipation,
diarrhea, chest pain, headache. She has been noncompliant with her blood pressure medications over the past 2 weeks.
Past Medical History
Past Medical History: HTN, Hypercholesterolemia and Other (gout)
Past Surgical History: Appendectomy, Gynecological (hysterectomy) and Other (eye surgery)
Social History
Tobacco: Non-smoker
Alcohol: None
Drug: None
Personal:
Living: With Family
Family History
Family History: Reviewed & Not Pertinent
Allergies / Home Medications
Allergies
Allergy/AdvReac Type Severity Reaction Status Date / Time
No Known Allergies Allergy Verified 02/17/24 23:31
Home Medications
�Medication �Instructions �Recorded �Confirmed �Last Taken �Type
aspirin 81 mg chewable tablet 81 mg PO DAILY 01/01/13 03/18/24 2 Weeks Ago History
~03/04/24
atorvastatin 10 mg tablet 10 mg PO DAILY 01/01/13 03/18/24 2 Weeks Ago History
~03/04/24
allopurinol 300 mg tablet 300 mg PO DAILY 01/02/13 03/18/24 2 Weeks Ago History
~03/04/24
calcium carbonate (Oyster Shell 500 mg PO TID 01/02/13 03/18/24 03/17/24 History
Calcium 500)
metoprolol succinate 50 mg 50 mg PO DAILY 01/02/13 03/18/24 2 Weeks Ago History
tablet,extended release 24 hr ~03/04/24
tjsqmwpe-hkf-tyfdl acid 0.4 1 tab PO DAILY 01/02/13 03/18/24 2 Weeks Ago History
mg-lycopene 300 mcg-lutein 250 mcg ~03/04/24
tablet (Centrum Silver)
dorzolamide 2 % eye drops 1 drp BOTH EYES BID 02/17/24 03/18/24 2 Weeks Ago History
~03/04/24
flaxseed oil 1,000 mg capsule 1,000 mg PO BID 02/17/24 03/18/24 2 Weeks Ago History
~03/04/24
lansoprazole 15 mg capsule,delayed 15 mg PO DAILY 02/17/24 03/18/24 2 Weeks Ago History
release ~03/04/24
netarsudil 0.02 %-latanoprost 1 drp BOTH EYES QPM 02/17/24 03/18/24 2 Weeks Ago History
0.005 % eye drops (Rocklatan) ~03/04/24
psyllium 1 packet PO DAILY 02/17/24 03/18/24 2 Weeks Ago History
~03/04/24
timolol 0.5 % eye drops 1 drp BOTH EYES DAILY 02/17/24 03/18/24 2 Weeks Ago History
~03/04/24
Lactobac no.2-Bifidobac no.1-S. 1 cap PO DAILY 03/14/24 03/18/24 2 Weeks Ago History
thermo 112.5 billion cell capsule ~03/04/24
(Visbiome)
raloxifene 60 mg tablet 60 mg PO DAILY 03/14/24 03/18/24 2 Weeks Ago History
~03/04/24
vitamins A,C,R-lyhv-gshkxe 2,148 1 tab PO BID 03/14/24 03/18/24 2 Weeks Ago History
mcg-113 mg-45 mg-17.4 mg tablet ~03/04/24
(PreserVision AREDS)
bismuth subsalicylate 262 mg/15 mL 262 mg PO DAILYPRN PRN stoamch 03/18/24 03/18/24 03/18/24 History
oral suspension (Pepto-Bismol) issuses
famotidine 20 mg tablet (Pepcid) 20 mg PO BID 03/18/24 03/18/24 03/17/24 History
hydrocodone 5 mg-acetaminophen 325 0.5 tab PO DAILYPRN PRN severe 03/18/24 03/18/24 03/17/24 History
mg tablet pains
lisinopril 20 1 tab PO DAILY 03/18/24 03/18/24 2 Weeks Ago History
mg-hydrochlorothiazide 12.5 mg ~03/04/24
tablet
ondansetron 4 mg disintegrating 4 mg PO Q8HPRN PRN nausea and 03/18/24 03/18/24 03/17/24 History
tablet vomiting
oxycodone 5 mg tablet 5 mg PO HSPRN PRN sereve pain 03/18/24 03/18/24 03/16/24 History
polyethylene glycol 3350 17 gram 17 g PO DAILY 03/18/24 03/18/24 03/17/24 History
oral powder packet (Miralax)
povidone (PF) 0.5 % eye drops 1 drp ophthalmic (eye) Q3H 03/18/24 03/18/24 Unknown History
(iVizia (PF))
sennosides 8.6 mg tablet (senna) 17.2 mg PO BID 03/18/24 03/18/24 03/17/24 History
Review of Systems
-
History Source: Patient and Family
Constitutional: Fever (negative) and Chills (negative)
Respiratory: Cough (negative)
Cardiac: Chest Pain (negative)
Abdomen/GI: Abdominal Pain (generalized), Nausea (with dry heaving), Vomiting (negative), Diarrhea (negative) and Constipated (negative)
Neuro: Weakness (negative)
Vitals / Labs / Diagnostic Testing
Vital Signs
Temp Pulse Resp BP Pulse Ox
97.8 F 118 12 139/63 99
03/18/24 10:02 03/18/24 13:15 03/18/24 13:15 03/18/24 13:00 03/18/24 13:15
Lab Data
03/18/24 09:28
Microbiology
03/18/24 10:06 Nasal Swab Influenza Types A & B (STEPHANIE) - Final
Negative for Influenza A & B, NAAT
Negative results must be combined with clinical observations
and patient history.
Nucleic Acid Amplification test (NAAT)performed on the
[employer] platform.
Diagnostic Testing:
Physical Exam
-
Cardiovascular: Murmur (continuous murmur heard over right upper sternal border )
Respiratory: Clear
GI: Soft, Non Distended and Tender (hypogastric region)
Neurology: Awake, Alert, Oriented and AO x 3
Assessment
-
LINDSEY stage 5:
- Creatinine is 12.7 and BUN >240
- Nephrology consulted and are going to start dialysis
- Trend K+ ( keep between 4-5.1), Mg+, Phosphorus, calcium
- Trend Lipids to check for triglyceride levels
- Venous blood gas to check for hco3, ph, and pcao2 levels
- Bicarb drip to counteract acidosis
- Hold off on blood pressure medications, restart aspirin, statin, pepcid half dose at 10 mg
- Trend CMP, CBC
Hypertension:
- today blood pressure is 139/63
- Hold off on blood pressure medications for now
Hyperlipidemia
- Restart on statins
Gout:
- Hold off on allopurinol
Glaucoma:
- restart her on dorzolamide and timolol
DVT:
- heparin subq
Full code
Data Reviewed
-
Medical Tests (Nuc Med, Echo etc): Image personally visualized and interpreted and Discussed with Physician
Labs: Labs reviewed by me and Discussed with Physician
[2024-03-18 15:29] LABS: Glucose - Point of Care 273 mg/dl (70-99)
[2024-03-18 16:33] LABS: Hepatitis B Surface Antigen Negative (Negative)
[2024-03-18 16:43] LABS: HDL Cholesterol 17 mg/dl; LDL Cholesterol, Calculated 31 mg/dl; Total Cholesterol 89 mg/dl (50-199); Triglyceride 206 mg/dl (10-149); Very Low Density Lipoprotein 41 mg/dl (0-30)
[2024-03-18 16:52] LABS: Hepatitis B Core Ab, Total Negative (Negative); Hepatitis B Surface Antibody Negative; Hepatitis C Antibody Negative (Negative)
[2024-03-18 17:06] LABS: Iron 157 ug/dl (37-170)
[2024-03-18 17:15] LABS: Percent Saturation 82 % (20-50); Total Iron Binding Capacity 190 ug/dl (265-497)
[2024-03-18 17:35] LABS: Glucose - Point of Care 222 mg/dl (70-99)
[2024-03-18] MEDS: REFRESH EYE DROPS (PF) 1 DROPS BOTH EYES ×3 (17:38→23:39)
[2024-03-18] MEDS: NOVOLOG FLEXPEN-MODERATE RESISTANCE 3 UNITS SC (17:38)
[2024-03-18] MEDS: LOW STRENGTH ASPIRIN 81 MG PO (17:38)
[2024-03-18] MEDS: LIPITOR 10 MG PO (17:38)
[2024-03-18] MEDS: PEPCID 10 MG PO (17:38)
[2024-03-18 18:04] LABS: Urine Albumin Trace (Neg - Trace); Urine Bilirubin Negative (Negative); Urine Character Clear (Clear); Urine Color Yellow; Urine Glucose Negative (Negative); Urine Ketone Negative (Negative); Urine Leukocyte Negative (Negative); Urine Nitrite Negative (Negative); Urine Occult Blood Negative (Negative); Urine Urobilinogen Negative (Neg - 1+)
[2024-03-18 18:20] LABS: Protein/creatinine Ratio 0.4; Urine Protein 29 mg/dl; Urine Sodium 42 mmol/L (30-90)
[2024-03-18 18:45] LABS: INR 1.14; PT 14.9 Sec (11.4-14.6)
[2024-03-18 18:50] LABS: ALT (SGPT) < 10 U/L (0-35); AST (SGOT) 15 U/L (14-36); Albumin 2.9 g/dl (3.5-5.0); Alkaline Phosphatase 70 U/L (38-126); Calcium 7.1 mg/dl (8.4-10.2); Carbon Dioxide 14 mmol/L (22-30); Chloride 104 mmol/L (98-107); Estimated Creatinine Clearance 3 ml/min; Glucose 199 mg/dl (70-99); Potassium 4.1 mmol/L (3.5-5.1); Sodium 140 mmol/L (135-145); Total Bilirubin 0.3 mg/dl (0.2-1.3); Total Protein 5.4 g/dl (6.3-8.2); eGFR 2.96
--- NOTE | 2024-03-18 18:54 | PTCARENOTE ---
Received pt from ER via stretcher s/p HD cath placement in IR; max assisted from stretcher to bed. Ox3, c/o moderate L shoulder pain from previous injury- MD aware. ST on monitor. SpO2 98% on RA. Afebrile. +BS, abd soft/nt; int nausea, no
vomiting. NPO ex meds maintained. Ellis catheter inserted per orders; oliguric/urine yellow. L shoulder ecchymosis, TAISHA. # 20 R AC w sterile water w 150meq sodium bicarb @ 125mL/hr. R IJ HD cath in place, dressing c/d/i. HD RN to bedside and
1st treatment initiated. Family to bedside, updated. Safe environment maintained.
[2024-03-18 19:06] LABS: Blood Urea Nitrogen 239 mg/dl (7-17)
[2024-03-18] MEDS: OCUVITE SOFTGEL PO (19:38)
--- NOTE | 2024-03-18 20:00 | PTCARENOTE ---
Rec pt lethargic , receiving HD at this time, oriented to person & place, reoriented to time, follows commands, ST w/ pac's, bp stable, weak distal pulses, no edema, skin warm/dry,Room air, sat 98, lungs decr in bases, + bowel sounds, + nausea-
zofran 4mg iv given at 1945, inc lg amt liquid brown stool, rectal trumpet inserted but leaking, fecal mgmt sys inserted, stool for c dif sent per order, thermister mcneal draining yellow urine
[2024-03-18] MEDS: TRUSOPT 2% OPHTHALMIC SOLUTION 1 DROP BOTH EYES (21:00)
[2024-03-18] MEDS: STERILE WATER FOR INJECTION 10 ML IV (21:41)
[2024-03-18] MEDS: ROCEPHIN 1000 MG IV (21:41)
--- NOTE | 2024-03-18 23:30 | PTCARENOTE ---
sys reviewed, dilaudid 0.25mg iv given for pain
[2024-03-18] MEDS: DILAUDID 0.25 MG IV (23:33)
[2024-03-18] MEDS: NOVOLOG FLEXPEN-MODERATE RESISTANCE SC (23:36)
[2024-03-18 23:47] LABS: Glucose - Point of Care 117 mg/dl (70-99)
[2024-03-19] VITALS (37 sets, daily range): BP systolic 115–159; BP diastolic 55–84; BMI 22.4
[2024-03-19] MEDS: DILAUDID 0.5 MG IV ×2 (01:38→15:05)
[2024-03-19] MEDS: ZOFRAN 4 MG IV ×3 (01:38→15:19)
[2024-03-19] MEDS: SODIUM BICARBONATE 1150 MEQ IV (01:39)
--- NOTE | 2024-03-19 01:40 | PTCARENOTE ---
zofran 4mg iv given for nausea, dilaudid 0.5mg iv given for pain; CHG bath done, linens changed, when asleep sat dropped to 88- 2 liters nc applied
[2024-03-19] MEDS: REFRESH EYE DROPS (PF) BOTH EYES ×3 (03:07→17:50)
[2024-03-19 03:17] LABS: % Eosinophils 0.2 % (0-6); % Immature Granulocytes 0.7 % (0-0.5); % Lymphocytes 6.2 % (20.5-51.1); % Monocytes 2.4 % (1.7-9.3); % Neutrophils 90.5 % (42.2-75.2); Absolute Immature Granulocytes 0.1 10^3/uL (0-0.05); Absolute Lymphocytes 0.7 10^3/uL (1.2-3.4); Absolute Monocytes 0.3 10^3/uL (0.1-0.6); Absolute Neutrophils 9.5 10^3/uL (1.4-6.5); Hematocrit 20.3 % (37.0-47.0); Hemoglobin 7.1 g/dL (12.0-16.0); Mean Corpuscular Hgb 33.5 pg (27.0-31.0); Mean Corpuscular Volume 95.8 fL (81.0-99.0); Mean Platelet Volume 12.6 fL (7.4-10.4); Nucleated Red Blood Cells % 0 %; Platelet Count 110 10^3/uL (130-400); Red Blood Cell Count 2.12 10^6/uL (4.20-5.40); Red Cell Dist. Width 13.8 % (11.5-14.5); White Blood Cell Count 10.4 10^3/uL (4.8-10.8)
[2024-03-19 03:21] LABS: Venous Blood Gas B.E. 3.7 mmol/L (-4 to +4); Venous Blood Gas O2 Sat % 99.3 %; Venous Blood Gas pCO2 29 mmHg (35-48); Venous Blood Gas pH 7.56 (7.32-7.43); Venous Blood Gas pO2 184 mmHg (30-50)
[2024-03-19 03:22] LABS: Venous Blood Gas O2 Therapy 99
[2024-03-19] MEDS: ATIVAN 0.5 MG IV (04:20)
--- NOTE | 2024-03-19 04:21 | PTCARENOTE ---
sys reviewed, Melinda Goldberg NP aware of critical hct, type & screen sent, pt moaning- I feel terrible'. ativan 0.5 mg iv given as ordered
[2024-03-19 04:40] LABS: Blood Urea Nitrogen 120 mg/dl (7-17); Carbon Dioxide 27 mmol/L (22-30); Chloride 91 mmol/L (98-107); Estimated Creatinine Clearance 5 ml/min; Glucose 111 mg/dl (70-99); Lipase 1551 U/L (23-300); Potassium 3.5 mmol/L (3.5-5.1); Sodium 134 mmol/L (135-145); eGFR 5.67
[2024-03-19] MEDS: NOVOLOG FLEXPEN-MODERATE RESISTANCE SC ×3 (06:02→17:50)
[2024-03-19] MEDS: REFRESH EYE DROPS (PF) 1 DROPS BOTH EYES ×4 (06:03→21:26)
[2024-03-19 06:13] LABS: Glucose - Point of Care 129 mg/dl (70-99)
--- NOTE | 2024-03-19 08:00 | PTCARENOTE ---
Assumed care of patient. Pt rec'd lethargic and drowsy. Garbled speech due to dry mouth and prn ativan/dilaudid. Knows name, , place, why she was admitted but confused to time. HEATON's but weak. S1 S2 reg w/ + murmur...ST on monitor. 1st
degree AVB/BBC/PAC's noted. Weak PP. No edema. On 2L N/C...sats 98%. Occasionally desats to 86% on R/a. Lungs clear but diminished in bases. Abdomen round...+BS. FMS draining liquid brown stool. Flushed w/o issue. Ellis (LINDSEY) draining
yellow urine. Skin pale in color. Left arm ecchymotic (blue/purple) due to prior left humerus fx. RIJ HD cath. HD scheduled for 1200. 20P RAC capped. 20P RFA w/ IVF's infusing. VS documented. NPO x meds. Will continue to monitor closely.
[2024-03-19 08:27] LABS: Glycohemoglobin (HgbA1c) 6.1 % (4.0-5.6)
[2024-03-19] MEDS: LIPITOR 10 MG PO (08:52)
[2024-03-19] MEDS: LOW STRENGTH ASPIRIN 81 MG PO (08:52)
[2024-03-19] MEDS: MIRALAX 17 GRAMS PO (08:52)
[2024-03-19] MEDS: OCUVITE SOFTGEL 1 CAP PO (08:52)
[2024-03-19] MEDS: TIMOPTIC 0.5% OPHTHALMIC SOLUTION 1 DROP BOTH EYES (08:53)
[2024-03-19] MEDS: TRUSOPT 2% OPHTHALMIC SOLUTION 1 DROP BOTH EYES ×2 (08:53→21:31)
--- NOTE | 2024-03-19 08:53 | W.PN.INTV ---
Today's Communication / Plan
Recommendations
- continue dialysis
- continue to trend CMP and CBC
Assessment
-
LINDSEY stage 5:
- Hgb level is 7.1, trend hemoglobin and if stable then discharge
- Creatinine is 6.7 and BUN 120, continue to trend
- Continue on dialysis as scheduled
- Todays potassium is 3.4 , Trend K+ ( keep between 4-5.1), Mg+, Phosphorus, calcium
- Venous blood gas to check for hco3, ph, and pcao2 levels
- Bicarb drip discontinued as patient is in alkalosis
- pain meds as needed
- Hold off on blood pressure medications, restart aspirin, statin, pepcid half dose at 10 mg ( changed to IV today) as patient cannot tolerate oral
- Trend CMP, CBC
Tachycardia:
- Start on carvedilol as needed for heart rate above 120 fore more than 2 mins
Elevated lipase, possible pancreatitis:
- Triglycerides are 206, and lipase levels are 1551, rule out pancreatitis
- keep trending lipase
Hypertension:
- today blood pressure is 141/69
- Hold off on blood pressure medications for now
Hyperlipidemia
- Restart on statins
Gout:
- Hold off on allopurinol
Glaucoma:
- restart her on dorzolamide and timolol
GERD:
- Started on pantoprazole 40 mg IV
DVT:
- none as of now because of bleeding risk
Full code
Subjective Dataa
Subjective Data
Date of Service:
Date of Service: March 19, 2024
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
Subjective:
Patient is currently on dialysis started last night
Last night she had a couple of loose bowel movements yesterday, possible concern for C diff.
Review of Systems
Cardiopulmonary: Dyspnea (negative ), Cough (negative ), Chest Pain (negative ) and Edema (negative )
GI: Abdominal Pain and Nausea
Neuro: Headache (negative ) and Numbness (negative )
Objective Data
Data Reviewed
Vital Signs / I&O / Oxygen:
Vital Signs
Temp Pulse Resp BP Pulse Ox
98.2 F 114 17 141/69 98
03/19/24 04:00 03/19/24 06:00 03/19/24 06:00 03/19/24 06:00 03/19/24 06:00
Intake and Output
03/18/24 03/19/24 03/20/24
06:59 06:59 06:59
Intake Total 1860 / 1860
Output Total 430 / 430
Balance 1430 / 1430
SaO2 98
Nasal Cannula flow liters per 2
minute
Physical Exam
Cardiovascular: Murmur (continous murmer heard over the right upper sternal border)
Respiratory: Clear
GI: Soft, Tender and Normal Bowel Sounds
Neurology: Awake, Alert, Oriented and AO x 3
Labs/Micro/Reports
Lab Data
03/19/24 03:03
03/19/24 04:02
Laboratory Results
03/18/24
18:25
PT 14.9 H
INR 1.14
APTT 34.0
Microbiology
03/18/24 20:56 Feces/Stool C. difficile [facility] Antigen & Toxins - Final
Negative for toxigenic C.difficile
03/18/24 10:06 Nasal Swab Influenza Types A & B (STEPHANIE) - Final
Negative for Influenza A & B, NAAT
Negative results must be combined with clinical observations
and patient history.
Nucleic Acid Amplification test (NAAT)performed on the
[employer] platform.
--- NOTE | 2024-03-19 09:20 | PTCARENOTE ---
Zofran provided for nausea and dry heaving. Cool cloth applied to forehead.
--- NOTE | 2024-03-19 11:10 | CM ---
CM following re: discharge planning.
Discussed in rounds, reviewed pt's chart, met with pt. Pt's and pt's son at bedside.
Pt is an 84 year old female admitted with primary dx of LINDSEY. Per rounds meeting, pt had dialysis treatment yesterday and will have another treatment today, continue supportive care.
Pt presents lying on the bed, drowsy, information obtained from pt's and son. pt lives with 2SH, 2 steps to enter, has 3 supportive children. 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 No DME, VN or SNF history.
PCP: pt has new PCP: Alessandro Simpson
Pharmacy: [facility].
D/C plan: uncertain at this time and will depend on pt's progress. Will follow up with senior engineering associate regarding possible needs for outpatient HD treatment.
CM will follow with discharge plan updates as hospitalization progresses
[2024-03-19] MEDS: NSS 1000 IV (11:30)
[2024-03-19 11:32] LABS: Glucose - Point of Care 107 mg/dl (70-99)
[2024-03-19] MEDS: PROTONIX IV 40 MG IV (11:53)
[2024-03-19] MEDS: NSS (PRESERVATIVE FREE) 10 ML IV (11:53)
--- NOTE | 2024-03-19 12:00 | PTCARENOTE ---
and son at bedside for visit and fully updated by RN and MD. Pt's speech less garbled. Does not have any nausea or pain at present. Smiling and laughing intermittently. Pt c/o 'feeling very tired'. No major changes in physical
assessment. VS documented. For HD shortly. Will continue to monitor.
--- NOTE | 2024-03-19 12:50 | W.PN.NEPH.HD ---
Assessment
-
Patient seen on HD
sbp 140s
no u/f
mannitol
Progress Note - Hemodialysis
-
Date of Service: March 19, 2024
Duration: 30 minutes and 2 hours
Potassium Bath: 3 (3/4)
Calcium Bath: 2.5
Opti-Dialyzer: 160
Ultrafiltration: Other (negative)
Blood Flow: 250
Dialysate Flow: Other (400)
Heparin: no
EPO: no
[2024-03-19] MEDS: MANNITOL 25% 12.5 GRAMS IV (13:12)
[2024-03-19 13:37] LABS: Hemoglobin 6.9 g/dL (12.0-16.0); Mean Corp Hgb Conc. 34.5 g/dL (33.0-37.0); Mean Corpuscular Volume 95.7 fL (81.0-99.0); Mean Platelet Volume 12.7 fL (7.4-10.4); Platelet Count 87 10^3/uL (130-400); Red Blood Cell Count 2.09 10^6/uL (4.20-5.40); Red Cell Dist. Width 13.5 % (11.5-14.5); White Blood Cell Count 9.7 10^3/uL (4.8-10.8)
--- NOTE | 2024-03-19 14:55 | W.PN.HOSP.TC ---
Today's Communication/Plan
-
Hemodialysis
Continue antibiotics covering for sigmoid diverticulitis
Clear liquid diet
Assessment / Plan
Assessment / Plan
IMPRESSION:
Acute kidney injury.
Severe metabolic acidosis
Hyperkalemia.
Persistent gastrointestinal symptoms including nausea, dry heaves, diffuse abdominal pain likely attributed to uremia.
Sigmoid diverticulitis by imaging.
Leukocytosis
Elevated lipase
Other conditions:
Left humeral fracture managed conservatively
Essential hypertension
Dyslipidemia.
Gout
PLAN:
Acute kidney injury
Severe metabolic acidosis/acidemia
Hyperkalemia without EKG changes
Suspected secondary to NSAIDs.
Patient reports stopping lisinopril and HCTZ at least 2 weeks prior to presentation.
ED workup with no evidence of retention, or obstructive uropathy.
Ellis catheter to be placed for strict I's and O's.
UA bland
Remains oliguric
Right chest HD catheter placed on 03/18
Initiated on HD on 03/18
Persistent GI symptoms including nausea, dry heaves, diffuse abdominal pain.
Exam with left lower quadrant tenderness.
Elevated lipase, although with no evidence of pancreatic changes on the CT scan.
Upper GI symptoms suspected secondary to uremia.
Given left lower quadrant tenderness and CT scan findings consistent with sigmoid diverticulitis, will initiate ceftriaxone.
Clear liquid diet
Antiemetics
Anemia, normocytic.
Patient reports epistaxis that possibly related to platelet dysfunction in the settings of uremia.
No evidence of brisk blood loss.
Iron stores consistent with anemia of chronic disease/renal disease
EPO as per nephrology
Follow hemoglobin.
Essential hypertension
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 Avoid hypotension.
Left humeral fracture treated conservatively.
Analgesia with Tylenol
Consider oxycodone, although monitor for oversedation in the settings of LINDSEY.
Full code
DVT prophylaxis mechanical
Anticipated Discharge: > 48 hours
Subjective/Interval History
-
Date of Service: March 19, 2024
Objective Data
-
Labs:
Laboratory Results
03/19/24 03/19/24 03/19/24
03:03 04:02 13:10
WBC 10.4 9.7
Hgb 7.1 L 6.9 L*
Hct 20.3 L* 20.0 L*
Plt Count 110 L D 87 L D
Sodium Cancelled 134 L
Potassium Cancelled 3.5
Chloride Cancelled 91 L
Carbon Dioxide Cancelled 27
BUN Cancelled 120 H*
Creatinine Cancelled 6.7 H*
Glucose Cancelled 111 H
Calcium Cancelled 7.0 L
Vital Signs:
Vital Signs
Temp Pulse Resp BP Pulse Ox
98.1 F 99 14 148/66 99
03/19/24 11:19 03/19/24 14:15 03/19/24 14:15 03/19/24 14:15 03/19/24 14:15
I&O
03/18/24 03/19/24 03/20/24
06:59 06:59 06:59
Intake Total 1859 910 / 910
Output Total 430 / 430
Balance 1430 / 1555 910 / 910
Physical Exam
-
General: Well Developed and No Apparent Distress
HEENT: Normocephalic, Atraumatic and Moist Mucous Membranes
Respiratory: Clear to Auscultation
Cardiac: Regular Rhythm and S1/S2; Negative Murmur, Rub or Gallop
GI: Soft, Nondistended, Normal Bowel Sounds and Other (Mild left lower quadrant tenderness); Negative Organomegaly
Rectal: Deferred by Provider
Musculoskeletal: No Clubbing, No Cyanosis and No Edema
Skin: Negative Rash
Neuro: Nonfocal/Grossly Intact
--- NOTE | 2024-03-19 16:00 | PTCARENOTE ---
Pt has transfer orders for tele. Pt to transfer to Room 2122 when clean. HD completed...uneventful. For HD tmr.
--- NOTE | 2024-03-19 16:39 | PTCARENOTE ---
Report called to Giovany MILLER on . Pt to transfer to Room 2123.
[2024-03-19] MEDS: LOPRESSOR 5 MG IV (16:59)
[2024-03-19 17:43] LABS: Glucose - Point of Care 104 mg/dl (70-99)
[2024-03-19] MEDS: PEPCID 10 MG IV (21:25)
[2024-03-19] MEDS: ROCEPHIN 1000 MG IV (21:26)
[2024-03-19] MEDS: STERILE WATER FOR INJECTION 10 ML IV (21:37)
[2024-03-20] VITALS (9 sets, daily range): BP systolic 135–172; BP diastolic 66–92; PULSE 114; O2SAT 93; BMI 23.8
[2024-03-20 00:19] LABS: Glucose - Point of Care 99 mg/dl (70-99)
[2024-03-20] MEDS: ZOFRAN 4 MG IV ×4 (00:40→21:31)
[2024-03-20] MEDS: NOVOLOG FLEXPEN-MODERATE RESISTANCE SC ×4 (01:07→17:33)
[2024-03-20] MEDS: REFRESH EYE DROPS (PF) BOTH EYES ×2 (01:07→04:10)
[2024-03-20] MEDS: NSS 1000 IV (04:37)
[2024-03-20 05:54] LABS: Glucose - Point of Care 102 mg/dl (70-99)
[2024-03-20] MEDS: REFRESH EYE DROPS (PF) 1 DROPS BOTH EYES ×6 (06:35→21:46)
[2024-03-20] MEDS: TIMOPTIC 0.5% OPHTHALMIC SOLUTION 1 DROP BOTH EYES (08:28)
[2024-03-20] MEDS: TRUSOPT 2% OPHTHALMIC SOLUTION 1 DROP BOTH EYES ×2 (08:28→19:54)
[2024-03-20] MEDS: LOW STRENGTH ASPIRIN 81 MG PO (08:30)
[2024-03-20] MEDS: LIPITOR 10 MG PO (08:30)
[2024-03-20] MEDS: PROTONIX IV 40 MG IV (08:30)
[2024-03-20] MEDS: NSS (PRESERVATIVE FREE) 10 ML IV (08:30)
[2024-03-20] MEDS: OCUVITE SOFTGEL 1 CAP PO ×2 (08:31→19:54)
[2024-03-20] MEDS: RETACRIT 10000 UNITS IV (08:38)
[2024-03-20] MEDS: MANNITOL 25% 12.5 GRAMS IV ×2 (08:38→10:19)
[2024-03-20 08:39] LABS: Hemoglobin 7.6 g/dL (12.0-16.0); Mean Corp Hgb Conc. 34.5 g/dL (33.0-37.0); Mean Corpuscular Hgb 31.9 pg (27.0-31.0); Mean Corpuscular Volume 92.4 fL (81.0-99.0); Platelet Count 77 10^3/uL (130-400); Red Blood Cell Count 2.38 10^6/uL (4.20-5.40); Red Cell Dist. Width 17.1 % (11.5-14.5); White Blood Cell Count 9.6 10^3/uL (4.8-10.8)
--- NOTE | 2024-03-20 09:09 | PN.CDI ---
CDI
- -
CDI:
Physician Documentation Request
Admit Date: 03/18/24 15:41
Dear Doctor Aniyah,
Clinical Indicators:
Patient admitted with LINDSEY and severe metabolic acidosis.
03/19 [employer] Pasture [employer]er PN, 'She remains very weak and somewhat confused.'
03/18, 03/19 Nursing Shift Assessments, Mentation: Drowsy, Lethargic
Cr/Serum Bicarbonate:
03/18/24
09:28
Carbon Dioxide 5 L*
Creatinine 12.7 H*
Based on the above, could you clarify which, if any of the following, is the most likely etiology of the confusion/altered mental status.
Acute Metabolic Encephalopathy
Lethargy/weakness only
Other
Use of terms such as suspected, likely, concern for, or probable (associated with a specific diagnosis that is being evaluated, monitored, or treated as if it exists) are acceptable and can be coded in the inpatient setting, when documented at the
time of discharge.
Thank you,
Jada Anaya RN BSN
CDI Specialist
available via tiger text
Please use your independent medical judgment in providing your response.
--- NOTE | 2024-03-20 09:17 | W.PN.NEPH.HD ---
Assessment
-
Patient seen on dialysis
Systolic blood pressure stable at even UF
Will provide 10,000 units of Procrit
Of note patient was supposed to see hematology and has an outpatient prior to admission
I also looked through her lab work and found that in November 2023 her creatinine was at its baseline of 0.92
As of February 24, 2024 the creatinine had elevated to 2.13
Aggressive care is to be pursued she may eventual renal biopsy
Progress Note - Hemodialysis
-
Date of Service: March 20, 2024
Duration: 2 hours
Potassium Bath: 3
Calcium Bath: 2.5
Opti-Dialyzer: 160
Ultrafiltration: Other (Even)
Blood Flow: 300
Dialysate Flow: 600
Heparin: None
EPO: 10,000
[2024-03-20 09:42] LABS: Blood Urea Nitrogen 60 mg/dl (7-17); Calcium 8.2 mg/dl (8.4-10.2); Carbon Dioxide 22 mmol/L (22-30); Chloride 97 mmol/L (98-107); Estimated Creatinine Clearance 9 ml/min; Glucose 86 mg/dl (70-99); Lipase 1017 U/L (23-300); Magnesium 1.7 mg/dl (1.6-2.3); Phosphorus 6.3 mg/dl (2.5-4.5); Potassium 3.7 mmol/L (3.5-5.1); Sodium 133 mmol/L (135-145); eGFR 11.56
[2024-03-20 10:09] LABS: LDH 240 U/L (120-246)
--- NOTE | 2024-03-20 10:41 | CM ---
Patient seen at bedside.
HD today #3
Await PT/OT evals
CM to follow for outpatient dialysis needs.
PLAN: CM to follow for if outpatient dialysis is needed.
[2024-03-20] MEDS: HEPARIN 2000 UNITS INTRACATH (11:15)
[2024-03-20 13:04] LABS: Glucose - Point of Care 94 mg/dl (70-99)
--- NOTE | 2024-03-20 15:27 | W.PN.HOSP.TC ---
Today's Communication/Plan
-
HD as per nephrology
Workup for anemia
Continue ceftriaxone for sigmoid diverticulitis
Stool for norovirus
Assessment / Plan
Assessment / Plan
IMPRESSION:
Acute kidney injury.
Severe metabolic acidosis
Hyperkalemia.
Persistent gastrointestinal symptoms including nausea, dry heaves, diffuse abdominal pain likely attributed to uremia.
Sigmoid diverticulitis by imaging.
Leukocytosis
Elevated lipase
Other conditions:
Left humeral fracture managed conservatively
Essential hypertension
Dyslipidemia.
Gout
PLAN:
Acute kidney injury
Severe metabolic acidosis/acidemia
Hyperkalemia without EKG changes
Suspected secondary to NSAIDs.
Patient reports stopping lisinopril and HCTZ at least 2 weeks prior to presentation.
ED workup with no evidence of retention, or obstructive uropathy.
Ellis catheter to be placed for strict I's and O's.
Remains oliguric
Right chest HD catheter placed on 03/18
Initiated on HD on 03/18.
In review of his nephrology and outpatient medical records noted that patient had elevated creatinine month prior to this presentation
Question remains if there is a chronic or systemic process led to LINDSEY with likely underlying CKD.
Anemia, normocytic.
Patient did report epistaxis on admission which was mild likely attributed to uremia and platelet dysfunction
No evidence of brisk blood loss since admission
Hemoglobin has been declining at the lowest at 6.9 requiring transfusion.
Iron stores sufficient and overall consistent with anemia of chronic disease
Heme check stool.
LDH/haptoglobin to rule out hemolysis.
SPEP
Epogen given by nephrology
Thrombocytopenia
Follow CBC.
Workup for anemia
May require oncology/hematology evaluation
Persistent GI symptoms including nausea, dry heaves, diffuse abdominal pain.
Exam with left lower quadrant tenderness.
Elevated lipase, although with no evidence of pancreatic changes on the CT scan.
Upper GI symptoms suspected secondary to uremia.
Given left lower quadrant tenderness and CT scan findings consistent with sigmoid diverticulitis, will initiate ceftriaxone.
Clear liquid diet
Antiemetics
With persistent diarrhea, check stool for norovirus
C. difficile negative
Essential hypertension
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 Avoid hypotension.
Left humeral fracture treated conservatively.
Analgesia with Tylenol
Consider oxycodone, although monitor for oversedation in the settings of LINDSEY.
Full code
DVT prophylaxis mechanical
Anticipated Discharge: 24 - 48 hours
Subjective/Interval History
-
Date of Service: March 20, 2024
Objective Data
-
Labs:
Laboratory Results
03/20/24
08:00
WBC 9.6
Hgb 7.6 L
Hct 22.0 L
Plt Count 77 L
Sodium 133 L
Potassium 3.7
Chloride 97 L
Carbon Dioxide 22
BUN 60 H
Creatinine 3.7 H
Glucose 86
Calcium 8.2 L
Vital Signs:
Vital Signs
Temp Pulse Resp BP Pulse Ox
98.4 F 102 16 140/73 94
03/20/24 11:05 03/20/24 11:05 03/20/24 11:05 03/20/24 11:05 03/20/24 11:05
I&O
03/19/24 03/20/24 03/21/24
06:59 06:59 06:59
Intake Total 1859 / 1984 1755 / 1755
Output Total 430 / 430 405 / 405
Balance 1430 / 1555 1350 / 1350
Physical Exam
-
General: Well Developed and No Apparent Distress
HEENT: Normocephalic, Atraumatic and Moist Mucous Membranes
Respiratory: Clear to Auscultation
Cardiac: Regular Rhythm and S1/S2; Negative Murmur, Rub or Gallop
GI: Soft, Nondistended, Normal Bowel Sounds and Other (Mild left lower quadrant tenderness); Negative Organomegaly
Rectal: Deferred by Provider
Musculoskeletal: No Clubbing, No Cyanosis and No Edema
Skin: Negative Rash
Neuro: Nonfocal/Grossly Intact
[2024-03-20 17:33] LABS: Glucose - Point of Care 108 mg/dl (70-99)
[2024-03-20] MEDS: DILAUDID 0.5 MG IV (19:53)
[2024-03-20 21:11] LABS: Glucose - Point of Care 101 mg/dl (70-99)
[2024-03-20] MEDS: PEPCID 10 MG IV (21:32)
[2024-03-20] MEDS: STERILE WATER FOR INJECTION 10 ML IV (21:32)
[2024-03-20] MEDS: ROCEPHIN 1000 MG IV (21:32)
[2024-03-21] VITALS (7 sets, daily range): BP systolic 154–164; BP diastolic 76–97; PULSE 102; BMI 24.3
[2024-03-21] MEDS: REFRESH EYE DROPS (PF) BOTH EYES ×6 (00:06→23:02)
[2024-03-21 06:39] LABS: % Basophils 0.2 % (0-2); % Eosinophils 0.4 % (0-6); % Immature Granulocytes 0.8 % (0-0.5); % Lymphocytes 11.9 % (20.5-51.1); % Monocytes 8.1 % (1.7-9.3); % Neutrophils 78.6 % (42.2-75.2); Absolute Eosinophils 0.1 10^3/uL (0-0.7); Absolute Immature Granulocytes 0.1 10^3/uL (0-0.05); Absolute Lymphocytes 1.4 10^3/uL (1.2-3.4); Absolute Monocytes 0.9 10^3/uL (0.1-0.6); Hematocrit 23.8 % (37.0-47.0); Hemoglobin 8.1 g/dL (12.0-16.0); Mean Corpuscular Hgb 32.4 pg (27.0-31.0); Mean Corpuscular Volume 95.2 fL (81.0-99.0); Mean Platelet Volume 13.6 fL (7.4-10.4); Nucleated Red Blood Cells % 0 %; Platelet Count 87 10^3/uL (130-400); Red Cell Dist. Width 17.6 % (11.5-14.5); White Blood Cell Count 11.4 10^3/uL (4.8-10.8)
[2024-03-21 06:59] LABS: Blood Urea Nitrogen 32 mg/dl (7-17); Calcium 8.6 mg/dl (8.4-10.2); Carbon Dioxide 22 mmol/L (22-30); Chloride 99 mmol/L (98-107); Estimated Creatinine Clearance 13 ml/min; Glucose 84 mg/dl (70-99); Potassium 3.3 mmol/L (3.5-5.1); Sodium 135 mmol/L (135-145)
[2024-03-21] MEDS: NSS (PRESERVATIVE FREE) 10 ML IV (08:56)
[2024-03-21] MEDS: REFRESH EYE DROPS (PF) 1 DROPS BOTH EYES ×3 (08:56→17:41)
[2024-03-21] MEDS: LIPITOR 10 MG PO (08:56)
[2024-03-21] MEDS: LOW STRENGTH ASPIRIN 81 MG PO (08:56)
[2024-03-21] MEDS: OCUVITE SOFTGEL 1 CAP PO ×2 (08:56→20:56)
[2024-03-21] MEDS: TRUSOPT 2% OPHTHALMIC SOLUTION 1 DROP BOTH EYES ×2 (08:57→20:56)
[2024-03-21] MEDS: PROTONIX IV 40 MG IV (08:57)
[2024-03-21] MEDS: TIMOPTIC 0.5% OPHTHALMIC SOLUTION 1 DROP BOTH EYES (08:58)
[2024-03-21 09:00] LABS: Glucose - Point of Care 92 mg/dl (70-99)
[2024-03-21] MEDS: ZOFRAN 4 MG IV (09:00)
[2024-03-21] MEDS: NOVOLOG FLEXPEN-MODERATE RESISTANCE SC ×3 (09:01→17:43)
--- NOTE | 2024-03-21 11:36 | CM ---
Patient seen at bedside.
stool neg norovirus
HD yesterday-acute renal fail
PLAN: CM to follow for outpatient dialysis if needed.
--- NOTE | 2024-03-21 12:20 | W.PN.NEPH.PH ---
Today's Communication / Plan
-
Dialysis tomorrow
Assessment/Plan
-
84-year-old female presents to the emergency room complaining not feeling well with nausea and vomiting over a four-day period she's not eaten over this period of time she's been taking Motrin for a recent fall and a left humerus fracture should
been taking Motrin 1 to 2 times a day for three weeks
acute kidney injury= presented creatinine 12( creatinine 0.09 November 2023 and creatinine of 2.01 February 2024)
hyperkalemia= presenting potassium 5.8
acute Gapped metabolic acidosis= presenting bicarbonate 5
nausea vomiting
status post humerus fracture
plan:
acute kidney injury could be from of the daily Motrin use since her humerus fracture Motrin one or 2 Times Daily
Protein creatinine ratio 0.4
Urinalysis bland no hematuria no white blood cells
family is at the bedside dialysis As situation was discussed. Will need to continue dialysis with next planned treatment tomorrow Sunday
If she continues to not make urine requiring ongoing dialysis she will need a permanent catheter placed next week by interventional radiology and outpatient placement for dialysis
-
-
Date of Service: March 21, 2024
CC / HPI / ROS
-
Chief Complaint:
Acute kidney injury
History of Present Illness:
Presented with nausea and vomiting and acute kidney injury requiring acute dialysis
Review of Systems:
Minimal urine output
Labs
-
Labs:
WBC 11.4 10^3/uL (4.8-10.8) H 03/21/24 06:15
RBC 2.50 10^6/uL (4.20-5.40) L 03/21/24 06:15
Hgb 8.1 g/dL (12.0-16.0) L 03/21/24 06:15
Hct 23.8 % (37.0-47.0) L 03/21/24 06:15
Plt Count 87 10^3/uL (130-400) L 03/21/24 06:15
Sodium 135 mmol/L (135-145) 03/21/24 06:15
Potassium 3.3 mmol/L (3.5-5.1) L 03/21/24 06:15
Chloride 99 mmol/L (98-107) 03/21/24 06:15
Carbon Dioxide 22 mmol/L (22-30) 03/21/24 06:15
BUN 32 mg/dl (7-17) H 03/21/24 06:15
Creatinine 2.5 mg/dL (0.6-1.0) H 03/21/24 06:15
eGFR 18.50 03/21/24 06:15
Glucose 84 mg/dl (70-99) 03/21/24 06:15
Calcium 8.6 mg/dl (8.4-10.2) 03/21/24 06:15
Phosphorus 6.3 mg/dl (2.5-4.5) H 03/20/24 08:00
Albumin 2.9 g/dl (3.5-5.0) L 03/18/24 17:44
Physical Exam
-
Vital Signs:
Vital Signs
Temp Pulse Resp BP Pulse Ox
98.9 F 98 16 154/85 93
03/21/24 11:50 03/21/24 11:50 03/21/24 11:50 03/21/24 11:50 03/21/24 11:50
Respiratory:: Bilateral: CTA
Lung Excursion:: Normal
Abdomen:: Soft
Bowel Sounds:: Normal
Extremity Edema:: None: Bilateral:
Ellis Catheter: No
[2024-03-21 12:34] LABS: Glucose - Point of Care 120 mg/dl (70-99)
--- NOTE | 2024-03-21 13:44 | W.PN.HOSP.TC ---
Addendum entered and electronically signed by Terrell Dill MD 03/21/24 14:45:
Stool negative for norovirus and C. difficile.
Advance to full liquid diet.
Original Note:
Today's Communication/Plan
-
Maintain Ellis for strict I's and O's.
HD as per nephrology schedule next session on 03/22.
Monitor hemoglobin.
SPEP
Assessment / Plan
Assessment / Plan
IMPRESSION:
Acute kidney injury.
Severe metabolic acidosis
Hyperkalemia.
Persistent gastrointestinal symptoms including nausea, dry heaves, diffuse abdominal pain likely attributed to uremia.
Sigmoid diverticulitis by imaging.
Leukocytosis
Elevated lipase
Other conditions:
Left humeral fracture managed conservatively
Essential hypertension
Dyslipidemia.
Gout
PLAN:
Acute kidney injury
Severe metabolic acidosis/acidemia
Hyperkalemia without EKG changes
Suspected secondary to NSAIDs.
Patient reports stopping lisinopril and HCTZ at least 2 weeks prior to presentation.
ED workup with no evidence of retention, or obstructive uropathy.
Ellis catheter to be placed for strict I's and O's.
Right chest HD catheter placed on 03/18
Initiated on HD on 03/18.
In review of his nephrology and outpatient medical records noted that patient had elevated creatinine month prior to this presentation
Noted with urine output 03/21 close to 7-800 mL over 24 hours
Urinalysis bland.
Continue HD as per nephrology
Anemia, normocytic.
Patient did report epistaxis on admission which was mild likely attributed to uremia and platelet dysfunction
No evidence of brisk blood loss since admission
Hemoglobin has been declining at the lowest at 6.9 requiring transfusion.
Iron stores sufficient and overall consistent with anemia of chronic disease
Heme check stool.
LDH/haptoglobin to rule out hemolysis.
SPEP
Epogen given by nephrology
Thrombocytopenia
Follow CBC.
Workup for anemia
May require oncology/hematology evaluation
Persistent GI symptoms including nausea, dry heaves, diffuse abdominal pain.
Exam with left lower quadrant tenderness.
Elevated lipase, although with no evidence of pancreatic changes on the CT scan.
Upper GI symptoms suspected secondary to uremia.
Given left lower quadrant tenderness and CT scan findings consistent with sigmoid diverticulitis, will initiate ceftriaxone.
Clear liquid diet
Antiemetics
With persistent diarrhea, check stool for norovirus
C. difficile negative
Essential hypertension
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
Left humeral fracture treated conservatively.
Analgesia with Tylenol
Consider oxycodone, although monitor for oversedation in the settings of LINDSEY.
Full code
DVT prophylaxis mechanical
Anticipated Discharge: > 48 hours
Subjective/Interval History
-
Date of Service: March 21, 2024
Objective Data
-
Labs:
Laboratory Results
03/21/24
06:15
WBC 11.4 H
Hgb 8.1 L
Hct 23.8 L
Plt Count 87 L
Sodium 135
Potassium 3.3 L
Chloride 99
Carbon Dioxide 22
BUN 32 H
Creatinine 2.5 H
Glucose 84
Calcium 8.6
Vital Signs:
Vital Signs
Temp Pulse Resp BP Pulse Ox
98.9 F 98 16 154/85 93
03/21/24 11:50 03/21/24 11:50 03/21/24 11:50 03/21/24 11:50 03/21/24 11:50
I&O
03/20/24 03/21/24 03/22/24
06:59 06:59 06:59
Intake Total 1755 / 1755 720 / 720
Output Total 405 / 405 425 / 425
Balance 1350 / 1350 295 / 295
Physical Exam
-
General: Well Developed and No Apparent Distress
HEENT: Normocephalic, Atraumatic and Moist Mucous Membranes
Respiratory: Clear to Auscultation
Cardiac: Regular Rhythm and S1/S2; Negative Murmur, Rub or Gallop
GI: Soft, Nondistended, Normal Bowel Sounds and Other (Mild left lower quadrant tenderness); Negative Organomegaly
Rectal: Deferred by Provider
Musculoskeletal: No Clubbing, No Cyanosis and No Edema
Skin: Negative Rash
Neuro: Nonfocal/Grossly Intact
[2024-03-21 17:44] LABS: Glucose - Point of Care 118 mg/dl (70-99)
[2024-03-21 21:30] LABS: Glucose - Point of Care 110 mg/dl (70-99)
[2024-03-21] MEDS: PEPCID 10 MG IV (22:42)
[2024-03-21] MEDS: ROCEPHIN 1000 MG IV (22:45)
[2024-03-21] MEDS: STERILE WATER FOR INJECTION 10 ML IV (22:45)
[2024-03-22 02:53] LABS: Haptoglobin 244 mg/dL (30-200)
[2024-03-22 03:07] VITALS: BP 150/74
[2024-03-22] MEDS: REFRESH EYE DROPS (PF) 1 DROPS BOTH EYES ×4 (03:41→22:06)
[2024-03-22] MEDS: REFRESH EYE DROPS (PF) BOTH EYES ×3 (05:43→17:20)
[2024-03-22 06:00] VITALS: BMI 23.9
[2024-03-22 07:36] LABS: Glucose - Point of Care 97 mg/dl (70-99)
[2024-03-22] MEDS: NOVOLOG FLEXPEN-MODERATE RESISTANCE SC ×3 (07:53→18:13)
[2024-03-22] MEDS: HEPARIN 1000 UNITS IV (07:55)
[2024-03-22 08:00] VITALS: BP 181/86
[2024-03-22 08:11] LABS: % Basophils 0.1 % (0-2); % Eosinophils 0.6 % (0-6); % Immature Granulocytes 0.7 % (0-0.5); % Lymphocytes 7.4 % (20.5-51.1); % Monocytes 7.3 % (1.7-9.3); % Neutrophils 83.9 % (42.2-75.2); Absolute Eosinophils 0.1 10^3/uL (0-0.7); Absolute Immature Granulocytes 0.1 10^3/uL (0-0.05); Absolute Lymphocytes 1.1 10^3/uL (1.2-3.4); Absolute Monocytes 1.1 10^3/uL (0.1-0.6); Absolute Neutrophils 12.2 10^3/uL (1.4-6.5); Hematocrit 23.7 % (37.0-47.0); Mean Corp Hgb Conc. 33.8 g/dL (33.0-37.0); Mean Corpuscular Hgb 32.5 pg (27.0-31.0); Mean Corpuscular Volume 96.3 fL (81.0-99.0); Mean Platelet Volume 12.6 fL (7.4-10.4); Nucleated Red Blood Cells % 0 %; Platelet Count 111 10^3/uL (130-400); Red Blood Cell Count 2.46 10^6/uL (4.20-5.40); Red Cell Dist. Width 17.3 % (11.5-14.5); White Blood Cell Count 14.5 10^3/uL (4.8-10.8)
--- NOTE | 2024-03-22 09:13 | W.PN.HOSP.TC ---
Today's Communication/Plan
-
HD today. Antibiotics. PT OT
Assessment / Plan
Assessment / Plan
Physical exam:
General: Acutely ill
HEENT: Normocephalic, Atraumatic and Moist Mucous Membranes. Left IJ in place
Respiratory: Clear to Auscultation; Negative Wheezes, Rales or Rhonchi
Cardiac: Regular Rhythm and S1/S2
GI: Soft, Nontender and Nondistended
Musculoskeletal: No Clubbing, No Cyanosis and No Edema
Neuro: Awake, Alert and Oriented
Psych: Calm
A/P:
IMPRESSION:
Acute kidney injury.
Severe metabolic acidosis
Hyperkalemia.
Persistent gastrointestinal symptoms including nausea, dry heaves, diffuse abdominal pain likely attributed to uremia.
Sigmoid diverticulitis by imaging.
Leukocytosis
Elevated lipase
Other conditions:
Left humeral fracture managed conservatively
Essential hypertension
Dyslipidemia.
Gout
PLAN:
Acute kidney injury
Severe metabolic acidosis/acidemia
Hyperkalemia without EKG changes
Suspected secondary to NSAIDs.
Patient reports stopping lisinopril and HCTZ at least 2 weeks prior to presentation.
ED workup with no evidence of retention, or obstructive uropathy.
Ellis catheter to be placed for strict I's and O's.
Right chest HD catheter placed on 03/18
Initiated on HD on 03/18.
In review of his nephrology and outpatient medical records noted that patient had elevated creatinine month prior to this presentation
Noted with urine output 03/21 close to 7-800 mL over 24 hours
Urinalysis bland.
Continue HD as per nephrology--> hemodialysis today on 03/22
Advance diet from full liquid to low residue today
Discussed with son at bedside today on 03/22
Anemia, normocytic.
Patient did report epistaxis on admission which was mild likely attributed to uremia and platelet dysfunction
No evidence of brisk blood loss since admission
Hemoglobin has been declining at the lowest at 6.9 requiring transfusion.
Iron stores sufficient and overall consistent with anemia of chronic disease
Heme check stool.
LDH/haptoglobin to rule out hemolysis.
SPEP
Epogen given by nephrology
Thrombocytopenia
Follow CBC.
Workup for anemia
May require oncology/hematology evaluation
Persistent GI symptoms including nausea, dry heaves, diffuse abdominal pain.
Exam with left lower quadrant tenderness.
Elevated lipase, although with no evidence of pancreatic changes on the CT scan.
Upper GI symptoms suspected secondary to uremia.
Given left lower quadrant tenderness and CT scan findings consistent with sigmoid diverticulitis, will initiate ceftriaxone.
Clear liquid diet
Antiemetics
Negative stool norovirus
C. difficile negative
Mild bump in leukocytosis
Continue IV ceftriaxone and add IV Flagyl
Hypokalemia.
Replete and trend
Essential hypertension
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 Avoid hypotension.
Left humeral fracture treated conservatively.
Analgesia with Tylenol
Consider oxycodone, although monitor for oversedation in the settings of LINDSEY.
Full code
DVT prophylaxis mechanical
Total time spent on today's encounter was 52 minutes which included time spent in counseling the patient/family regarding diagnosis and treatment plan as listed above, goals of care, and symptom management. Case was discussed with nursing staff,
specialists, and care coordinators/case management. All labs and imaging personally reviewed by me. Remainder the time spent in detailed review of previous records, lab data, imaging, and other medical provider documentation.
Anticipated Discharge: > 48 hours
Subjective/Interval History
-
Date of Service: March 22, 2024
Patient tolerated full liquid diet. No chest pain or shortness of breath. Afebrile
Objective Data
-
Labs:
Laboratory Results
03/22/24
07:25
WBC 14.5 H
Hgb 8.0 L
Hct 23.7 L
Plt Count 111 L D
Sodium Pending
Potassium Pending
Chloride Pending
Carbon Dioxide Pending
BUN Pending
Creatinine Pending
Glucose Pending
Calcium Pending
Vital Signs:
Vital Signs
Temp Pulse Resp BP Pulse Ox
98.6 F 109 18 181/86 93
03/22/24 08:00 03/22/24 08:00 03/22/24 08:00 03/22/24 08:00 03/22/24 08:00
I&O
03/21/24 03/22/24 03/23/24
06:59 06:59 06:59
Intake Total 720 / 720 840 / 840
Output Total 425 / 425 525 / 525
Balance 295 / 295 315 / 315
[2024-03-22] MEDS: RETACRIT 10000 UNITS IV (09:17)
[2024-03-22] MEDS: TRUSOPT 2% OPHTHALMIC SOLUTION 1 DROP BOTH EYES ×2 (10:06→22:02)
[2024-03-22] MEDS: TIMOPTIC 0.5% OPHTHALMIC SOLUTION 1 DROP BOTH EYES (10:06)
[2024-03-22] MEDS: LIPITOR 10 MG PO (10:07)
[2024-03-22] MEDS: NSS (PRESERVATIVE FREE) 10 ML IV (10:08)
[2024-03-22] MEDS: PROTONIX IV 40 MG IV (10:08)
[2024-03-22] MEDS: FLUSH (NSS) 2 FLUSH IV ×2 (10:09→16:26)
[2024-03-22] MEDS: OCUVITE SOFTGEL 1 CAP PO (10:10)
[2024-03-22] MEDS: LOW STRENGTH ASPIRIN 81 MG PO (10:11)
[2024-03-22 10:22] LABS: Blood Urea Nitrogen 41 mg/dl (7-17); Calcium 8.5 mg/dl (8.4-10.2); Carbon Dioxide 24 mmol/L (22-30); Chloride 97 mmol/L (98-107); Estimated Creatinine Clearance 9 ml/min; Glucose 85 mg/dl (70-99); Iron 46 ug/dl (37-170); Percent Saturation 18 % (20-50); Potassium 2.7 mmol/L (3.5-5.1); Sodium 134 mmol/L (135-145); Total Iron Binding Capacity 244 ug/dl (265-497); eGFR 11.94
[2024-03-22] MEDS: HEPARIN 2200 UNITS INTRACATH (11:33)
[2024-03-22 12:00] VITALS: BP 169/85
--- NOTE | 2024-03-22 12:22 | W.PN.NEPH.HD ---
Progress Note - Hemodialysis
-
Date of Service: March 22, 2024
Duration: 3 hours
Potassium Bath: 4
Calcium Bath: 2.5
Opti-Dialyzer: 160
Ultrafiltration: Other (1-2 L)
Blood Flow: 400
Dialysate Flow: 600
Heparin: no
EPO: no
[2024-03-22 12:57] LABS: Glucose - Point of Care 143 mg/dl (70-99)
[2024-03-22] MEDS: KCL 40 MEQ PO ×2 (13:11→15:00)
[2024-03-22 16:00] VITALS: BP 178/92
[2024-03-22] MEDS: FLAGYL 500 MG 100 IV (16:23)
[2024-03-22] MEDS: NORVASC 5 MG PO (17:20)
[2024-03-22 18:09] LABS: Glucose - Point of Care 103 mg/dl (70-99)
[2024-03-22 19:43] VITALS: BP 160/86
[2024-03-22 21:41] LABS: Glucose - Point of Care 121 mg/dl (70-99)
[2024-03-22] MEDS: OCUVITE SOFTGEL PO (22:01)
[2024-03-22] MEDS: PEPCID 10 MG IV (22:06)
[2024-03-22] MEDS: STERILE WATER FOR INJECTION 10 ML IV (22:08)
[2024-03-22] MEDS: ROCEPHIN 1000 MG IV (22:08)
[2024-03-22] MEDS: NSS (PRESERVATIVE FREE) 8 ML IV (22:13)
[2024-03-22 23:09] VITALS: BP 157/96
[2024-03-23] VITALS (7 sets, daily range): BP systolic 140–163; BP diastolic 75–102; PULSE 110; O2SAT 89; BMI 23.3
--- NOTE | 2024-03-23 00:30 | PTCARENOTE ---
Patient is restless, uncooperative and confused and pulling at tubes tonight. She has not slept. Advised covering provider about her behavior and concern she has a central line for HD. Order received for restraints.
[2024-03-23] MEDS: FLAGYL 500 MG 100 IV (00:46)
[2024-03-23] MEDS: FLUSH (NSS) 2 FLUSH IV ×4 (00:47→17:47)
[2024-03-23] MEDS: REFRESH EYE DROPS (PF) BOTH EYES ×4 (00:57→17:47)
[2024-03-23] MEDS: LOPRESSOR 5 MG IV (01:21)
[2024-03-23] MEDS: TYLENOL 650 MG PO ×2 (01:46→21:03)
[2024-03-23 05:29] LABS: Blood Urea Nitrogen 21 mg/dl (7-17); Calcium 8.5 mg/dl (8.4-10.2); Carbon Dioxide 23 mmol/L (22-30); Chloride 100 mmol/L (98-107); Estimated Creatinine Clearance 14 ml/min; Glucose 115 mg/dl (70-99); Sodium 136 mmol/L (135-145); eGFR 19.43
[2024-03-23 05:35] LABS: % Basophils 0.1 % (0-2); % Eosinophils 0.2 % (0-6); % Immature Granulocytes 1.2 % (0-0.5); % Lymphocytes 4.5 % (20.5-51.1); % Monocytes 6.9 % (1.7-9.3); % Neutrophils 87.1 % (42.2-75.2); Absolute Immature Granulocytes 0.2 10^3/uL (0-0.05); Absolute Lymphocytes 0.8 10^3/uL (1.2-3.4); Absolute Monocytes 1.3 10^3/uL (0.1-0.6); Absolute Neutrophils 15.8 10^3/uL (1.4-6.5); Hematocrit 25.9 % (37.0-47.0); Hemoglobin 8.7 g/dL (12.0-16.0); Mean Corp Hgb Conc. 33.6 g/dL (33.0-37.0); Mean Corpuscular Hgb 31.8 pg (27.0-31.0); Mean Corpuscular Volume 94.5 fL (81.0-99.0); Mean Platelet Volume 12.3 fL (7.4-10.4); Nucleated Red Blood Cells % 0.2 %; Platelet Count 154 10^3/uL (130-400); Red Blood Cell Count 2.74 10^6/uL (4.20-5.40); Red Cell Dist. Width 16.8 % (11.5-14.5); White Blood Cell Count 18.1 10^3/uL (4.8-10.8)
[2024-03-23 07:27] LABS: Glucose - Point of Care 99 mg/dl (70-99)
--- NOTE | 2024-03-23 08:19 | W.PN.HOSP.TC ---
Today's Communication/Plan
-
Blood cultures. Antibiotics. Antihypertensives. HD per renal
Assessment / Plan
Assessment / Plan
Physical exam:
General: Acutely ill but nontoxic appearance today.
HEENT: Normocephalic, Atraumatic and Moist Mucous Membranes. Left IJ in place, no erythema or fluctuance
Respiratory: Clear to Auscultation; Negative Wheezes, Rales or Rhonchi
Cardiac: Regular Rhythm and S1/S2
GI: Soft, Nontender and Nondistended. Rectal tube in place but not much stool output.
Musculoskeletal: No Clubbing, No Cyanosis and No Edema
: Ellis catheter in place and clear yellow urine
Neuro: Awake, Alert and Oriented, no gross neurological deficits.
Psych: Calm
A/P:
IMPRESSION:
Acute kidney injury.
Severe metabolic acidosis
Hyperkalemia.
Hypokalemia.
Persistent gastrointestinal symptoms including nausea, dry heaves, diffuse abdominal pain likely attributed to uremia.
Sigmoid diverticulitis by imaging.
Leukocytosis
Elevated lipase
Delirium
Other conditions:
Left humeral fracture managed conservatively
Essential hypertension
Dyslipidemia.
Gout
PLAN:
Acute kidney injury
Severe metabolic acidosis/acidemia
Hyperkalemia without EKG changes
Suspected secondary to NSAIDs.
Patient reports stopping lisinopril and HCTZ at least 2 weeks prior to presentation.
ED workup with no evidence of retention, or obstructive uropathy.
Ellis catheter to be placed for strict I's and O's.
Right chest HD catheter placed on 03/18
Initiated on HD on 03/18.
In review of his nephrology and outpatient medical records noted that patient had elevated creatinine month prior to this presentation
Urinalysis bland.
Noted with urine output on 03/21 close to 7-800 mL over 24 hours
Today on 03/23:
Creatinine down to 2.4
Sodium up to 136
Continue HD as per nephrology
Tolerating low residue
Obtain blood cultures and broaden antibiotics to IV Zosyn
Remove rectal tube
Continue Ellis catheter for accurate urine output in the setting of LINDSEY
Discussed with son and at bedside today on 03/23
Anemia, normocytic.
Hemoglobin stable at 8.7
Patient did report epistaxis on admission which was mild likely attributed to uremia and platelet dysfunction
No evidence of brisk blood loss since admission
Hemoglobin has been declining at the lowest at 6.9 requiring transfusion.
Iron stores sufficient and overall consistent with anemia of chronic disease
Heme check stool.
LDH/haptoglobin to rule out hemolysis.
SPEP
Epogen given by nephrology
Thrombocytopenia
Platelet normalized to 154
Follow CBC.
Workup for anemia
May require oncology/hematology evaluation
Persistent GI symptoms including nausea, dry heaves, diffuse abdominal pain.
Improving now
Remove rectal tube
Exam with left lower quadrant tenderness.
Elevated lipase, although with no evidence of pancreatic changes on the CT scan.
Upper GI symptoms suspected secondary to uremia.
Given left lower quadrant tenderness and CT scan findings consistent with sigmoid diverticulitis, will initiate ceftriaxone. Clinically improved but leukocytosis worsened so antibiotics broadened as below.
Tolerating low residue diet
Antiemetics
Negative stool norovirus
C. difficile negative
Worsening leukocytosis
Change antibiotics to Zosyn for broader coverage and f/u trend wbc and obtain blood cultures today. Further workup if indicated.
Hypokalemia
Improved
Potassium normal, 4
Delirium.
Monitor mental status and behavior
Essential hypertension
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
Restart metoprolol XL 50 mg p.o. daily today
Started on amlodipine 5 mg p.o. daily since yesterday
Continue to hold lisinopril and HCTZ due to LINDSEY and hypokalemia.
Left humeral fracture treated conservatively.
Analgesia with Tylenol
Consider oxycodone, although monitor for oversedation in the settings of LINDSEY.
Full code
DVT prophylaxis mechanical
Anticipated Discharge: > 48 hours
Subjective/Interval History
-
Date of Service: March 23, 2024
Patient had some delirium last evening but much improved this morning. Denies abdominal pain nausea vomiting. Denies cough. Denies rash. Urinary catheter, IJ, and rectal tube in place. No erythema surrounding IJ. Afebrile.
Objective Data
-
Labs:
Laboratory Results
03/23/24
04:11
WBC 18.1 H
Hgb 8.7 L
Hct 25.9 L
Plt Count 154 D
Sodium 136
Potassium 4.0 D
Chloride 100
Carbon Dioxide 23
BUN 21 H
Creatinine 2.4 H
Glucose 115 H
Calcium 8.5
Vital Signs:
Vital Signs
Temp Pulse Resp BP Pulse Ox
98.5 F 97 16 156/83 93
03/23/24 02:08 03/23/24 02:08 03/23/24 02:08 03/23/24 02:08 03/23/24 02:08
I&O
03/22/24 03/23/24 03/24/24
06:59 06:59 06:59
Intake Total 840 / 840 360 / 360
Output Total 525 / 525 400 / 400
Balance 315 / 315 -40 / -40
[2024-03-23] MEDS: LIPITOR 10 MG PO (10:12)
[2024-03-23] MEDS: NOVOLOG FLEXPEN-MODERATE RESISTANCE SC ×2 (10:12→17:45)
[2024-03-23] MEDS: LOW STRENGTH ASPIRIN 81 MG PO (10:13)
[2024-03-23] MEDS: TRUSOPT 2% OPHTHALMIC SOLUTION 1 DROP BOTH EYES ×2 (10:13→21:02)
[2024-03-23] MEDS: REFRESH EYE DROPS (PF) 1 DROPS BOTH EYES ×5 (10:13→23:49)
[2024-03-23] MEDS: NORVASC 5 MG PO (10:13)
[2024-03-23] MEDS: OCUVITE SOFTGEL 1 CAP PO ×2 (10:13→21:03)
[2024-03-23] MEDS: TIMOPTIC 0.5% OPHTHALMIC SOLUTION 1 DROP BOTH EYES (10:14)
[2024-03-23] MEDS: NSS (PRESERVATIVE FREE) 10 ML IV (10:15)
[2024-03-23] MEDS: PROTONIX IV 40 MG IV (10:15)
[2024-03-23] MEDS: ZOSYN 50 IV ×2 (10:19→17:47)
[2024-03-23] MEDS: FLAGYL 500 MG IV (10:40)
--- NOTE | 2024-03-23 11:15 | CM ---
Patient seen at bedside. patient confused today, per nursing was agitated and in restraints overnight. Patient does not have HD plan for outpatient at this time. Patient seen yesterday by therapy and recommendation was for home health at that time.
Per therapy note family felt that would be able to work with outpatient and could handle patient at home. Per nursing patient called to overnight while confused. CM will continue to follow for clarification of discharge planning
needs.
Plan; home with VN vs SNF; pending patient functional needs and assessment
[2024-03-23 12:31] LABS: Glucose - Point of Care 154 mg/dl (70-99)
--- NOTE | 2024-03-23 13:09 | W.PN.NEPH.PH ---
Today's Communication / Plan
-
Dialysis Sunday
Blood cultures drawn with increasing white blood cell count
Holding on placing a permacath with worsening leukocytosis
Assessment/Plan
-
84-year-old female presents to the emergency room complaining not feeling well with nausea and vomiting over a four-day period she's not eaten over this period of time she's been taking Motrin for a recent fall and a left humerus fracture should
been taking Motrin 1 to 2 times a day for three weeks
acute kidney injury= presented creatinine 12( creatinine 0.09 November 2023 and creatinine of 2.01 February 2024)
hyperkalemia= presenting potassium 5.8
acute Gapped metabolic acidosis= presenting bicarbonate 5
nausea vomiting
status post humerus fracture
Diverticulitis
plan:
acute kidney injury could be from of the daily Motrin use since her humerus fracture Motrin one or 2 Times Daily
Protein creatinine ratio 0.4
Urinalysis bland no hematuria no white blood cells
family is at the bedside dialysis As situation was discussed.
Remains dialysis dependent
Has a nontunneled dialysis catheter and will refrain from putting a permacath in tomorrow with increasing white blood cell count and blood cultures reordered
She is making about 400 to 500 cc of urine daily although her clearance remains minimal for ongoing dialysis needed
She is on a TTS schedule but we will dialyze her on Sunday and Sunday with the holiday schedule
Continue antibiotics for diverticulitis
-
-
Date of Service: March 23, 2024
CC / HPI / ROS
-
Chief Complaint:
Acute kidney injury
History of Present Illness:
Presented with nausea and vomiting and acute kidney injury requiring acute dialysis
Review of Systems:
Remains oliguric
No chest pain or shortness of breath
Labs
-
Labs:
WBC 18.1 10^3/uL (4.8-10.8) H 03/23/24 04:11
RBC 2.74 10^6/uL (4.20-5.40) L 03/23/24 04:11
Hgb 8.7 g/dL (12.0-16.0) L 03/23/24 04:11
Hct 25.9 % (37.0-47.0) L 03/23/24 04:11
Plt Count 154 10^3/uL (130-400) D 03/23/24 04:11
Sodium 136 mmol/L (135-145) 03/23/24 04:11
Potassium 4.0 mmol/L (3.5-5.1) D 03/23/24 04:11
Chloride 100 mmol/L (98-107) 03/23/24 04:11
Carbon Dioxide 23 mmol/L (22-30) 03/23/24 04:11
BUN 21 mg/dl (7-17) H 03/23/24 04:11
Creatinine 2.4 mg/dL (0.6-1.0) H 03/23/24 04:11
eGFR 19.43 03/23/24 04:11
Glucose 115 mg/dl (70-99) H 03/23/24 04:11
Calcium 8.5 mg/dl (8.4-10.2) 03/23/24 04:11
Phosphorus 6.3 mg/dl (2.5-4.5) H 03/20/24 08:00
Albumin 2.9 g/dl (3.5-5.0) L 03/18/24 17:44
Physical Exam
-
Vital Signs:
Vital Signs
Temp Pulse Resp BP Pulse Ox
98.3 F 100 16 145/80 94
03/23/24 11:30 03/23/24 11:30 03/23/24 11:30 03/23/24 11:30 03/23/24 11:30
Respiratory:: Bilateral: CTA
Lung Excursion:: Normal
Abdomen:: Soft
Bowel Sounds:: Normal
Extremity Edema:: None: Bilateral:
Ellis Catheter: No
[2024-03-23] MEDS: NOVOLOG FLEXPEN-MODERATE RESISTANCE 1 UNITS SC (13:14)
[2024-03-23] MEDS: TOPROL XL 50 MG PO (13:18)
[2024-03-23 17:29] LABS: Glucose - Point of Care 101 mg/dl (70-99)
[2024-03-23 21:18] LABS: Glucose - Point of Care 149 mg/dl (70-99)
[2024-03-23] MEDS: PEPCID 10 MG IV (21:36)
[2024-03-23] MEDS: NSS (PRESERVATIVE FREE) 8 ML IV (21:39)
[2024-03-23 21:55] LABS: Albumin 2.47 g/dL (3.75-5.01); Alpha 1 Globulin 0.36 g/dL (0.19-0.46); Alpha 2 Globulin 0.77 g/dL (0.48-1.05); SPEP IFE Reflex IFE Done
[2024-03-23] MEDS: ATIVAN 0.25 MG IV (23:28)
[2024-03-23] MEDS: NSS (PRESERVATIVE FREE) 0.125 ML IV (23:31)
--- NOTE | 2024-03-24 00:22 | PTCARENOTE ---
03/23/2024 21:00 - Patient is agitated and pulled IV out. Order received for restraints. PT continues to be agitated and raising voice. Ativan given per doctors orders - see mar. PT is now calm and displaying appropriate behavior.
[2024-03-24] MEDS: ZOSYN 50 IV ×3 (02:32→18:52)
[2024-03-24] MEDS: REFRESH EYE DROPS (PF) 1 DROPS BOTH EYES ×4 (02:32→23:11)
[2024-03-24 03:39] VITALS: BP 150/89
[2024-03-24 06:00] VITALS: BMI 24.1
[2024-03-24 07:16] LABS: IgA 339 mg/dL (68-408); IgG 691 mg/dL (768-1632); IgM 32 mg/dL (35-263)
[2024-03-24] MEDS: RETACRIT 10000 UNITS IV (08:24)
[2024-03-24 08:35] VITALS: BP 139/78
[2024-03-24 08:45] LABS: % Basophils 0.2 % (0-2); % Eosinophils 0.3 % (0-6); % Lymphocytes 7.3 % (20.5-51.1); % Neutrophils 85.2 % (42.2-75.2); Absolute Eosinophils 0.1 10^3/uL (0-0.7); Absolute Immature Granulocytes 0.2 10^3/uL (0-0.05); Absolute Lymphocytes 1.3 10^3/uL (1.2-3.4); Absolute Monocytes 1.1 10^3/uL (0.1-0.6); Absolute Neutrophils 15.1 10^3/uL (1.4-6.5); Hematocrit 28.8 % (37.0-47.0); Hemoglobin 9.6 g/dL (12.0-16.0); Mean Corp Hgb Conc. 33.3 g/dL (33.0-37.0); Mean Corpuscular Hgb 31.9 pg (27.0-31.0); Mean Corpuscular Volume 95.7 fL (81.0-99.0); Mean Platelet Volume 12.2 fL (7.4-10.4); Nucleated Red Blood Cells % 0 %; Platelet Count 234 10^3/uL (130-400); Red Blood Cell Count 3.01 10^6/uL (4.20-5.40); Red Cell Dist. Width 17.1 % (11.5-14.5); White Blood Cell Count 17.7 10^3/uL (4.8-10.8)
[2024-03-24] MEDS: NSS (PRESERVATIVE FREE) 10 ML IV (09:39)
[2024-03-24] MEDS: PROTONIX IV 40 MG IV (09:40)
[2024-03-24] MEDS: LOW STRENGTH ASPIRIN 81 MG PO (09:44)
[2024-03-24] MEDS: TIMOPTIC 0.5% OPHTHALMIC SOLUTION 1 DROP BOTH EYES (09:44)
[2024-03-24] MEDS: TRUSOPT 2% OPHTHALMIC SOLUTION 1 DROP BOTH EYES ×2 (09:44→23:11)
[2024-03-24 09:45] LABS: Glucose - Point of Care 94 mg/dl (70-99)
[2024-03-24] MEDS: REFRESH EYE DROPS (PF) BOTH EYES ×3 (09:51→18:51)
[2024-03-24] MEDS: NOVOLOG FLEXPEN-MODERATE RESISTANCE SC ×3 (09:51→18:50)
[2024-03-24 10:19] LABS: Blood Urea Nitrogen 31 mg/dl (7-17); Calcium 8.7 mg/dl (8.4-10.2); Carbon Dioxide 22 mmol/L (22-30); Chloride 99 mmol/L (98-107); Estimated Creatinine Clearance 11 ml/min; Glucose 90 mg/dl (70-99); Potassium 4.2 mmol/L (3.5-5.1); Sodium 138 mmol/L (135-145); eGFR 14.86
--- NOTE | 2024-03-24 10:30 | W.PN.NEPH.HD ---
Assessment
-
pt seen during HD
vitals stable
UF as toelrates
temp catheter functions fine
await infection w/u prior placing tunneled catheter
cr increasing pre HD-non oliguric but no sig renal recovery yet
Progress Note - Hemodialysis
-
Date of Service: March 24, 2024
Duration: 30 minutes and 3 hours
Potassium Bath: 3
Calcium Bath: 2.5
Opti-Dialyzer: 160
Ultrafiltration: Other (1kg)
Blood Flow: 350
Dialysate Flow: 600
Heparin: no
EPO: [id number]
[2024-03-24 11:22] VITALS: BP 140/70
[2024-03-24] MEDS: NORVASC 5 MG PO (11:39)
[2024-03-24] MEDS: TOPROL XL 50 MG PO (11:39)
[2024-03-24] MEDS: OCUVITE SOFTGEL 1 CAP PO ×2 (11:39→23:12)
[2024-03-24] MEDS: LIPITOR 10 MG PO (11:41)
[2024-03-24 12:53] LABS: Glucose - Point of Care 89 mg/dl (70-99)
--- NOTE | 2024-03-24 14:53 | W.PN.HOSP.TC ---
Today's Communication/Plan
-
Hemodialysis as per schedule per nephrology.
Stool for C. difficile
Follow WBC
On empiric Zosyn
Physical therapy assessment
Assessment / Plan
Assessment / Plan
IMPRESSION:
Acute kidney injury.
Severe metabolic acidosis
Hyperkalemia.
Hypokalemia.
Persistent gastrointestinal symptoms including nausea, dry heaves, diffuse abdominal pain likely attributed to uremia.
Sigmoid diverticulitis by imaging.
Leukocytosis
Elevated lipase
Delirium
Other conditions:
Left humeral fracture managed conservatively
Essential hypertension
Dyslipidemia.
Gout
PLAN:
Acute kidney injury
Severe metabolic acidosis/acidemia
Hyperkalemia without EKG changes
Suspected secondary to NSAIDs.
Patient reports stopping lisinopril and HCTZ at least 2 weeks prior to presentation.
ED workup with no evidence of retention, or obstructive uropathy.
Ellis catheter to be placed for strict I's and O's.
Right chest HD catheter placed on 03/18
Initiated on HD on 03/18.
In review of his nephrology and outpatient medical records noted that patient had elevated creatinine month prior to this presentation
Urinalysis bland.
Monitor urine output
HD as per nephrology
Noted with rising leukocytosis at 18
Offers no new complaints per
Ellis catheter remains in place.
Chest x-ray on 03/24 with bilateral small pleural effusions
Blood cultures negative to date.
Initial stool for C. difficile negative
Stool for norovirus negative.
Recheck stool for C. difficile
Initiated empirically on Zosyn on 03/23. Continue for now and follow WBC
Anemia, normocytic.
Hemoglobin stable at 8.7
Patient did report epistaxis on admission which was mild likely attributed to uremia and platelet dysfunction
No evidence of brisk blood loss since admission
Hemoglobin has been declining at the lowest at 6.9 requiring transfusion.
Iron stores sufficient and overall consistent with anemia of chronic disease
Heme check stool.
LDH/haptoglobin to rule out hemolysis.
SPEP
Epogen given by nephrology
Thrombocytopenia
Platelet normalized to 154
Follow CBC.
Workup for anemia
May require oncology/hematology evaluation
Persistent GI symptoms including nausea, dry heaves, diffuse abdominal pain.
Improving now
Remove rectal tube
Exam with left lower quadrant tenderness.
Elevated lipase, although with no evidence of pancreatic changes on the CT scan.
Upper GI symptoms suspected secondary to uremia.
Given left lower quadrant tenderness and CT scan findings consistent with sigmoid diverticulitis, will initiate ceftriaxone. Clinically improved but leukocytosis worsened so antibiotics broadened as below.
Tolerating low residue diet
Antiemetics
Negative stool norovirus
C. difficile negative
Worsening leukocytosis
Change antibiotics to Zosyn for broader coverage and f/u trend wbc and obtain blood cultures today. Further workup if indicated.
Hypokalemia
Improved
Potassium normal, 4
Delirium.
Monitor mental status and behavior
Essential hypertension
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
Restart metoprolol XL 50 mg p.o. daily today
Started on amlodipine 5 mg p.o. daily since yesterday
Continue to hold lisinopril and HCTZ due to LINDSEY and hypokalemia.
Left humeral fracture treated conservatively.
Analgesia with Tylenol
Consider oxycodone, although monitor for oversedation in the settings of LINDSEY.
Full code
DVT prophylaxis mechanical
Anticipated Discharge: > 48 hours
Subjective/Interval History
-
Date of Service: March 24, 2024
Objective Data
-
Labs:
Laboratory Results
03/24/24
07:07
WBC 17.7 H
Hgb 9.6 L
Hct 28.8 L
Plt Count 234 D
Sodium 138
Potassium 4.2
Chloride 99
Carbon Dioxide 22
BUN 31 H
Creatinine 3.0 H
Glucose 90
Calcium 8.7
Vital Signs:
Vital Signs
Temp Pulse Resp BP Pulse Ox
97.7 F 89 17 140/70 96
03/24/24 11:22 03/24/24 11:22 03/24/24 11:22 03/24/24 11:22 03/24/24 11:22
I&O
03/23/24 03/24/24 03/25/24
06:59 06:59 06:59
Intake Total 360 / 360 340 / 340 950 / 950
Output Total 400 / 400 1100 / 1100 175 / 175
Balance -40 / -40 -760 / -760 775 / 775
Physical Exam
-
General: Well Developed and No Apparent Distress
HEENT: Normocephalic, Atraumatic and Moist Mucous Membranes
Respiratory: Clear to Auscultation
Cardiac: Regular Rhythm and S1/S2; Negative Murmur, Rub or Gallop
GI: Soft, Nontender, Nondistended and Normal Bowel Sounds; Negative Organomegaly
Rectal: Deferred by Provider
Musculoskeletal: No Clubbing, No Cyanosis and No Edema
Skin: Negative Rash
Neuro: Nonfocal/Grossly Intact
[2024-03-24 15:32] VITALS: BP 115/63
--- NOTE | 2024-03-24 15:38 | PTCARENOTE ---
patient intermittently confused. Sees animals in room. states she had a bunch of people eating lunch with her in her room and that they didnt eat theirs but she did (she did not in fact eat her lunch). Gets agitated when you try to correct her or
reorient. will continue ot monitor.
[2024-03-24 19:29] VITALS: BP 122/63
[2024-03-24 21:45] LABS: Glucose - Point of Care 83 mg/dl (70-99)
[2024-03-24 23:06] VITALS: BP 122/68
[2024-03-24] MEDS: PEPCID 10 MG IV (23:12)
[2024-03-24] MEDS: NSS (PRESERVATIVE FREE) 8 ML IV (23:13)
[2024-03-25] VITALS (7 sets, daily range): BP systolic 111–142; BP diastolic 46–78; O2SAT 97; BMI 23.0
[2024-03-25] MEDS: REFRESH EYE DROPS (PF) BOTH EYES ×2 (00:54→05:06)
[2024-03-25] MEDS: ZOSYN 50 IV ×2 (02:37→09:05)
[2024-03-25] MEDS: REFRESH EYE DROPS (PF) 1 DROPS BOTH EYES ×6 (02:38→21:39)
[2024-03-25 07:09] LABS: Glucose - Point of Care 97 mg/dl (70-99)
[2024-03-25] MEDS: NOVOLOG FLEXPEN-MODERATE RESISTANCE SC ×3 (09:01→17:23)
[2024-03-25] MEDS: OCUVITE SOFTGEL 1 CAP PO ×2 (09:02→20:19)
[2024-03-25] MEDS: LOW STRENGTH ASPIRIN 81 MG PO (09:02)
[2024-03-25] MEDS: TOPROL XL 50 MG PO (09:02)
[2024-03-25] MEDS: LIPITOR 10 MG PO (09:02)
[2024-03-25] MEDS: PROTONIX IV 40 MG IV (09:02)
[2024-03-25] MEDS: NORVASC 5 MG PO (09:02)
[2024-03-25] MEDS: TRUSOPT 2% OPHTHALMIC SOLUTION 1 DROP BOTH EYES ×2 (09:03→20:20)
[2024-03-25] MEDS: TIMOPTIC 0.5% OPHTHALMIC SOLUTION 1 DROP BOTH EYES (09:03)
[2024-03-25] MEDS: NSS (PRESERVATIVE FREE) 10 ML IV (09:03)
[2024-03-25] MEDS: TYLENOL 650 MG PO ×2 (09:07→21:44)
[2024-03-25 14:12] LABS: Glucose - Point of Care 186 mg/dl (70-99)
--- NOTE | 2024-03-25 15:37 | W.PN.HOSP.TC ---
Today's Communication/Plan
-
HD as per nephrology.
Observe off antibiotics and monitor WBC
Physical therapy assessment
Assessment / Plan
Assessment / Plan
IMPRESSION:
Acute kidney injury.
Severe metabolic acidosis
Hyperkalemia.
Hypokalemia.
Persistent gastrointestinal symptoms including nausea, dry heaves, diffuse abdominal pain likely attributed to uremia.
Sigmoid diverticulitis by imaging.
Leukocytosis
Elevated lipase
Delirium
Other conditions:
Left humeral fracture managed conservatively
Essential hypertension
Dyslipidemia.
Gout
PLAN:
Acute kidney injury
Severe metabolic acidosis/acidemia
Hyperkalemia without EKG changes
Suspected secondary to NSAIDs.
Patient reports stopping lisinopril and HCTZ at least 2 weeks prior to presentation.
ED workup with no evidence of retention, or obstructive uropathy.
Ellis catheter to be placed for strict I's and O's.
Right chest HD catheter placed on 03/18
Initiated on HD on 03/18.
In review of his nephrology and outpatient medical records noted that patient had elevated creatinine month prior to this presentation
Urinalysis bland.
Monitor urine output
HD as per nephrology
Noted with rising leukocytosis at 18
Offers no new complaints
Ellis catheter remains in place.
Chest x-ray on 03/24 with bilateral small pleural effusions
Blood cultures negative to date.
Initial stool for C. difficile negative
Stool for norovirus negative.
Recheck stool for C. difficile 03/25 negative
Initiated empirically on Zosyn on 03/23.
Biotics (Zosyn discontinued on 03/25) monitor WBC and temperature curve closely.
Anemia, normocytic.
Hemoglobin stable at 8.7
Patient did report epistaxis on admission which was mild likely attributed to uremia and platelet dysfunction
No evidence of brisk blood loss since admission
Hemoglobin has been declining at the lowest at 6.9 requiring transfusion.
Iron stores sufficient and overall consistent with anemia of chronic disease
Heme check stool.
LDH/haptoglobin to rule out hemolysis.
SPEP
Epogen given by nephrology
Thrombocytopenia
Platelet normalized to 154
Follow CBC.
Workup for anemia
May require oncology/hematology evaluation
Persistent GI symptoms including nausea, dry heaves, diffuse abdominal pain.
Improving now
Remove rectal tube
Exam with left lower quadrant tenderness.
Elevated lipase, although with no evidence of pancreatic changes on the CT scan.
Upper GI symptoms suspected secondary to uremia.
Given left lower quadrant tenderness and CT scan findings consistent with sigmoid diverticulitis, will initiate ceftriaxone. Clinically improved but leukocytosis worsened so antibiotics broadened as below.
Tolerating low residue diet
Antiemetics
Negative stool norovirus
C. difficile negative
Worsening leukocytosis
Change antibiotics to Zosyn for broader coverage and f/u trend wbc and obtain blood cultures today. Further workup if indicated.
Hypokalemia
Improved
Potassium normal, 4
Delirium.
Monitor mental status and behavior
Essential hypertension
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
Restart metoprolol XL 50 mg p.o. daily today
Started on amlodipine 5 mg p.o. daily since yesterday
Continue to hold lisinopril and HCTZ due to LINDSEY and hypokalemia.
Left humeral fracture treated conservatively.
Analgesia with Tylenol
Consider oxycodone, although monitor for oversedation in the settings of LINDSEY.
Full code
DVT prophylaxis mechanical
Anticipated Discharge: > 48 hours
Subjective/Interval History
-
Date of Service: March 25, 2024
Objective Data
-
Vital Signs:
Vital Signs
Temp Pulse Resp BP Pulse Ox
98.9 F 76 16 121/54 97
03/25/24 11:35 03/25/24 11:35 03/25/24 11:35 03/25/24 11:35 03/25/24 11:35
I&O
03/24/24 03/25/24 03/26/24
06:59 06:59 06:59
Intake Total 340 / 340 1550 / 1550
Output Total 1100 / 1100 375 / 375
Balance -760 / -760 1175 / 1175
Physical Exam
-
General: Well Developed and No Apparent Distress
HEENT: Normocephalic, Atraumatic and Moist Mucous Membranes
Respiratory: Clear to Auscultation
Cardiac: Regular Rhythm and S1/S2; Negative Murmur, Rub or Gallop
GI: Soft, Nontender, Nondistended and Normal Bowel Sounds; Negative Organomegaly
Rectal: Deferred by Provider
Musculoskeletal: No Clubbing, No Cyanosis and No Edema
Skin: Negative Rash
Neuro: Nonfocal/Grossly Intact
--- NOTE | 2024-03-25 16:21 | CM ---
Patient seen at bedside.
Spoke with son Last & spouse regarding dialysis sites as well as PT/OT rec SNF
Prefer [facility], [place] for outpatient dialysis.
They will call back to CM regarding days/time preference for outpatient dialysis.
Options discussed for SNF - [facility] preferred-Referral entered in [facility]
Spoke with Britney delgado & updated.
Britney delgado states [facility] & faxed them clinicals at [phone]-await response
tt to Dr. Hutson regarding outpatient dialysis set up - patient/family request [facility] in [place]
Faxed clinicals to [facility] at [phone] - will await response
PLAN: SNF, pending bed availability
[2024-03-25 17:22] LABS: Glucose - Point of Care 109 mg/dl (70-99)
--- NOTE | 2024-03-25 17:44 | W.PN.NEPH.PH ---
Today's Communication / Plan
-
HD
follow labs
Assessment/Plan
-
84-year-old female presents to the emergency room complaining not feeling well with nausea and vomiting over a four-day period she's not eaten over this period of time she's been taking Motrin for a recent fall and a left humerus fracture should
been taking Motrin 1 to 2 times a day for three weeks
acute kidney injury= presented creatinine 12( creatinine 0.09 November 2023 and creatinine of 2.01 February 2024)
hyperkalemia= presenting potassium 5.8
acute Gapped metabolic acidosis= presenting bicarbonate 5
nausea vomiting
status post humerus fracture
Diverticulitis
plan:
acute kidney injury could be from of the daily Motrin use since her humerus fracture Motrin one or 2 Times Daily
Protein creatinine ratio 0.4
Urinalysis bland, no hydro on CT
Remains dialysis dependent
cr increasing pre HD, oliguric with mcneal
no sig renal recovery yet, CM to look for HD unit placement
likely change to tunneld HD catheter once clear of infection, off abx
next HD on
d/w family and pt at bedside
-
-
Date of Service: March 25, 2024
CC / HPI / ROS
-
Chief Complaint:
Acute kidney injury
History of Present Illness:
Presented with nausea and vomiting and acute kidney injury requiring acute dialysis
no labs today
oliguric with mcneal
no
Review of Systems:
No chest pain or shortness of breath at rest
no abd pain
no n/v
Labs
-
Labs:
WBC 17.7 10^3/uL (4.8-10.8) H 03/24/24 07:07
RBC 3.01 10^6/uL (4.20-5.40) L 03/24/24 07:07
Hgb 9.6 g/dL (12.0-16.0) L 03/24/24 07:07
Hct 28.8 % (37.0-47.0) L 03/24/24 07:07
Plt Count 234 10^3/uL (130-400) D 03/24/24 07:07
Sodium 138 mmol/L (135-145) 03/24/24 07:07
Potassium 4.2 mmol/L (3.5-5.1) 03/24/24 07:07
Chloride 99 mmol/L (98-107) 03/24/24 07:07
Carbon Dioxide 22 mmol/L (22-30) 03/24/24 07:07
BUN 31 mg/dl (7-17) H 03/24/24 07:07
Creatinine 3.0 mg/dL (0.6-1.0) H 03/24/24 07:07
eGFR 14.86 03/24/24 07:07
Glucose 90 mg/dl (70-99) 03/24/24 07:07
Calcium 8.7 mg/dl (8.4-10.2) 03/24/24 07:07
Phosphorus 6.3 mg/dl (2.5-4.5) H 03/20/24 08:00
Albumin 2.9 g/dl (3.5-5.0) L 03/18/24 17:44
Physical Exam
-
Vital Signs:
Vital Signs
Temp Pulse Resp BP Pulse Ox
98.4 F 68 14 118/46 95
03/25/24 15:10 03/25/24 15:10 03/25/24 15:10 03/25/24 15:10 03/25/24 15:10
Cardiovascular:: Regular rate and rhythm
Respiratory:: Bilateral: CTA (anteriorly)
Lung Excursion:: Normal
Abdomen:: Nontender and Soft
Extremity Edema:: None: Bilateral: (trace)
Mcneal Catheter: Yes
[2024-03-25 21:25] LABS: Glucose - Point of Care 124 mg/dl (70-99)
[2024-03-25] MEDS: PEPCID 10 MG IV (21:40)
[2024-03-25] MEDS: NSS (PRESERVATIVE FREE) 8 ML IV (21:43)
[2024-03-26] MEDS: REFRESH EYE DROPS (PF) BOTH EYES ×3 (01:04→17:57)
[2024-03-26] MEDS: REFRESH EYE DROPS (PF) 1 DROPS BOTH EYES ×5 (02:21→21:22)
[2024-03-26 03:20] VITALS: BP 136/67
[2024-03-26 06:03] LABS: % Basophils 0.4 % (0-2); % Eosinophils 2.2 % (0-6); % Immature Granulocytes 0.6 % (0-0.5); % Lymphocytes 17.4 % (20.5-51.1); % Monocytes 9.7 % (1.7-9.3); % Neutrophils 69.7 % (42.2-75.2); Absolute Eosinophils 0.2 10^3/uL (0-0.7); Absolute Immature Granulocytes 0.1 10^3/uL (0-0.05); Absolute Lymphocytes 1.5 10^3/uL (1.2-3.4); Absolute Monocytes 0.8 10^3/uL (0.1-0.6); Hematocrit 23.8 % (37.0-47.0); Hemoglobin 7.8 g/dL (12.0-16.0); Mean Corp Hgb Conc. 32.8 g/dL (33.0-37.0); Mean Corpuscular Hgb 31.2 pg (27.0-31.0); Mean Corpuscular Volume 95.2 fL (81.0-99.0); Mean Platelet Volume 11.1 fL (7.4-10.4); Nucleated Red Blood Cells % 0 %; Platelet Count 234 10^3/uL (130-400); Red Cell Dist. Width 17.3 % (11.5-14.5); White Blood Cell Count 8.6 10^3/uL (4.8-10.8)
[2024-03-26 06:26] LABS: Blood Urea Nitrogen 27 mg/dl (7-17); Carbon Dioxide 26 mmol/L (22-30); Chloride 96 mmol/L (98-107); Estimated Creatinine Clearance 10 ml/min; Glucose 77 mg/dl (70-99); Potassium 3.3 mmol/L (3.5-5.1); Sodium 134 mmol/L (135-145); eGFR 13.76
[2024-03-26 06:29] VITALS: BMI 22.9
[2024-03-26 07:10] VITALS: BP 149/70
[2024-03-26 08:14] LABS: Glucose - Point of Care 78 mg/dl (70-99)
[2024-03-26] MEDS: NOVOLOG FLEXPEN-MODERATE RESISTANCE SC ×3 (08:27→17:22)
[2024-03-26] MEDS: NORVASC 5 MG PO (08:31)
[2024-03-26] MEDS: TOPROL XL 50 MG PO (08:32)
[2024-03-26] MEDS: LIPITOR 10 MG PO (08:32)
[2024-03-26] MEDS: PROTONIX IV 40 MG IV (08:32)
[2024-03-26] MEDS: LOW STRENGTH ASPIRIN 81 MG PO (08:32)
[2024-03-26] MEDS: TIMOPTIC 0.5% OPHTHALMIC SOLUTION 1 DROP BOTH EYES (08:32)
[2024-03-26] MEDS: OCUVITE SOFTGEL 1 CAP PO ×2 (08:32→21:21)
[2024-03-26] MEDS: NSS (PRESERVATIVE FREE) 10 ML IV (08:32)
[2024-03-26] MEDS: TRUSOPT 2% OPHTHALMIC SOLUTION 1 DROP BOTH EYES ×2 (08:33→21:22)
--- NOTE | 2024-03-26 10:24 | PTCARENOTE ---
pt oob to chair with x1 assist and RW. pt aaox3 for this nurse pleasant and cooperative. L arm remains in a sling. pt no longer with FMS and had one soft small bm for this nurse on the bsc this morning.
--- NOTE | 2024-03-26 10:53 | W.PN.HOSP.TC ---
Today's Communication/Plan
-
Replete potassium
Check magnesium
Assessment / Plan
Assessment / Plan
Gen-AAOx3, NAD
HEENT-NC, AT, anicteric, clear oral mm
Neck-supple
CV-reg, no M, +S1/S2
Lungs-clear B/L
Abd-soft, NT, ND
Ext-no edema
Musculoskeletal-no cyanosis, clubbing
Skin-warm and dry
Neuro-grossly non-focal
Psych-calm, cooperative
Acute kidney injury -started hemodialysis this admission. Nephrology following. Was on Motrin prior to admission. Ellis catheter remains in place.
Severe metabolic acidosis -resolved.
Hypokalemia -will replete. Check magnesium.
Hyponatremia -134, monitor for now.
Leukocytosis -asymptomatic. Afebrile. Doubt infection. Antibiotics discontinued.
Chronic anemia -normocytic. Hemoglobin downtrending, 7.8 today. Received 1 unit of blood transfusion so far this admission. No evidence of bleeding. Stools have been brown. Not iron deficient based on labs. Check B12, folic acid.
Elevated lipase -asymptomatic. Pancreas normal on CT.
Delirium
Left humeral fracture - managed conservatively.
Essential hypertension
Hyperlipidemia
Gout
Full code
Dispo -will need SNF on discharge.
Anticipated Discharge: > 48 hours
Subjective/Interval History
-
Date of Service: March 26, 2024
Patient seen and examined. No complaints.
Objective Data
-
Labs:
Laboratory Results
03/26/24
04:26
WBC 8.6
Hgb 7.8 L
Hct 23.8 L
Plt Count 234
Sodium 134 L
Potassium 3.3 L
Chloride 96 L
Carbon Dioxide 26
BUN 27 H
Creatinine 3.2 H
Glucose 77
Calcium 8.0 L
Vital Signs:
Vital Signs
Temp Pulse Resp BP Pulse Ox
98.1 F 88 16 149/70 97
03/26/24 07:10 03/26/24 07:10 03/26/24 07:10 03/26/24 08:32 03/26/24 07:10
I&O
03/25/24 03/26/24 03/27/24
06:59 06:59 06:59
Intake Total 1550 / 1550 360 / 360
Output Total 375 / 375 85 / 85
Balance 1175 / 1175 275 / 275
Review of Systems
-
History Source: Patient
All other systems: Reviewed and negative
[2024-03-26 11:52] LABS: Magnesium 1.7 mg/dl (1.6-2.3)
[2024-03-26 11:55] VITALS: BP 131/57
[2024-03-26] MEDS: KCL PO (12:01)
[2024-03-26] MEDS: TYLENOL 650 MG PO (12:13)
[2024-03-26] MEDS: KCL 40 MEQ PO (12:15)
[2024-03-26 12:44] LABS: Glucose - Point of Care 126 mg/dl (70-99)
[2024-03-26 13:00] LABS: Folate > 20.0 ng/ml (2.76-20); Vitamin B12 > 1000 pg/ml (239-931)
--- NOTE | 2024-03-26 13:03 | W.PN.NEPH.PH ---
Today's Communication / Plan
-
HD tomorrow
likely change to tunneled catheter
Assessment/Plan
-
84-year-old female presents to the emergency room complaining not feeling well with nausea and vomiting over a four-day period she's not eaten over this period of time she's been taking Motrin for a recent fall and a left humerus fracture should
been taking Motrin 1 to 2 times a day for three weeks
acute kidney injury= presented creatinine 12( creatinine 0.09 November 2023 and creatinine of 2.01 February 2024)
hyperkalemia= presenting potassium 5.8
acute Gapped metabolic acidosis= presenting bicarbonate 5
nausea vomiting
status post humerus fracture
Diverticulitis
plan:
acute kidney injury could be from of the daily Motrin use since her humerus fracture Motrin one or 2 Times Daily
Protein creatinine ratio 0.4
Urinalysis bland, no hydro on CT
Remains dialysis dependent
cr increasing pre HD, oligoanuric with mcneal
no sig renal recovery yet, CM to look for HD unit placement
likely change to tunneled HD catheter once clear of infection, WBC normalized, cx neg
replace k, likely from diarrhea
next HD on
d/w pt
-
-
Date of Service: March 26, 2024
CC / HPI / ROS
-
Chief Complaint:
Acute kidney injury
History of Present Illness:
Presented with nausea and vomiting and acute kidney injury requiring acute dialysis
cr at 3.2
oliguric with mcneal
no fevver
Review of Systems:
No chest pain or shortness of breath at rest
no abd pain
no n/v, has diarrhea
Labs
-
Labs:
WBC 8.6 10^3/uL (4.8-10.8) 03/26/24 04:26
RBC 2.50 10^6/uL (4.20-5.40) L 03/26/24 04:26
Hgb 7.8 g/dL (12.0-16.0) L 03/26/24 04:26
Hct 23.8 % (37.0-47.0) L 03/26/24 04:26
Plt Count 234 10^3/uL (130-400) 03/26/24 04:26
Sodium 134 mmol/L (135-145) L 03/26/24 04:26
Potassium 3.3 mmol/L (3.5-5.1) L 03/26/24 04:26
Chloride 96 mmol/L (98-107) L 03/26/24 04:26
Carbon Dioxide 26 mmol/L (22-30) 03/26/24 04:26
BUN 27 mg/dl (7-17) H 03/26/24 04:26
Creatinine 3.2 mg/dL (0.6-1.0) H 03/26/24 04:26
eGFR 13.76 03/26/24 04:26
Glucose 77 mg/dl (70-99) 03/26/24 04:26
Calcium 8.0 mg/dl (8.4-10.2) L 03/26/24 04:26
Phosphorus 6.3 mg/dl (2.5-4.5) H 03/20/24 08:00
Albumin 2.9 g/dl (3.5-5.0) L 03/18/24 17:44
Physical Exam
-
Vital Signs:
Vital Signs
Temp Pulse Resp BP Pulse Ox
98.1 F 75 16 131/57 97
03/26/24 11:55 03/26/24 11:55 03/26/24 11:55 03/26/24 11:55 03/26/24 11:55
Cardiovascular:: Regular rate and rhythm
Respiratory:: Bilateral: CTA
Lung Excursion:: Normal
Abdomen:: Nontender and Soft
Extremity Edema:: None: Bilateral: (trace)
Mcneal Catheter: Yes
[2024-03-26 15:20] VITALS: BP 129/57
[2024-03-26 17:18] LABS: Glucose - Point of Care 101 mg/dl (70-99)
[2024-03-26 18:49] VITALS: BP 125/55
[2024-03-26] MEDS: NSS (PRESERVATIVE FREE) 8 ML IV (21:22)
[2024-03-26] MEDS: PEPCID 10 MG IV (21:23)
[2024-03-26 21:43] LABS: Glucose - Point of Care 98 mg/dl (70-99)
[2024-03-26 23:15] VITALS: BP 140/64
[2024-03-27] VITALS (10 sets, daily range): BP systolic 79–160; BP diastolic 62–78; BMI 22.2
[2024-03-27] MEDS: REFRESH EYE DROPS (PF) BOTH EYES ×4 (00:48→23:13)
[2024-03-27] MEDS: REFRESH EYE DROPS (PF) 1 DROPS BOTH EYES ×5 (03:25→20:39)
[2024-03-27 06:57] LABS: Glucose - Point of Care 83 mg/dl (70-99)
[2024-03-27 06:59] LABS: % Basophils 0.6 % (0-2); % Immature Granulocytes 0.5 % (0-0.5); % Lymphocytes 22.1 % (20.5-51.1); % Monocytes 10.8 % (1.7-9.3); Absolute Eosinophils 0.1 10^3/uL (0-0.7); Absolute Lymphocytes 1.4 10^3/uL (1.2-3.4); Absolute Monocytes 0.7 10^3/uL (0.1-0.6); Absolute Neutrophils 4.1 10^3/uL (1.4-6.5); Hematocrit 24.2 % (37.0-47.0); Hemoglobin 8.1 g/dL (12.0-16.0); Mean Corp Hgb Conc. 33.5 g/dL (33.0-37.0); Mean Corpuscular Hgb 31.9 pg (27.0-31.0); Mean Corpuscular Volume 95.3 fL (81.0-99.0); Nucleated Red Blood Cells % 0 %; Platelet Count 236 10^3/uL (130-400); Red Blood Cell Count 2.54 10^6/uL (4.20-5.40); Red Cell Dist. Width 17.2 % (11.5-14.5); White Blood Cell Count 6.5 10^3/uL (4.8-10.8)
[2024-03-27 07:28] LABS: Blood Urea Nitrogen 32 mg/dl (7-17); Carbon Dioxide 26 mmol/L (22-30); Chloride 99 mmol/L (98-107); Estimated Creatinine Clearance 9 ml/min; Glucose 80 mg/dl (70-99); Potassium 3.9 mmol/L (3.5-5.1); Sodium 133 mmol/L (135-145); eGFR 11.56
[2024-03-27 08:32] LABS: Glucose - Point of Care 83 mg/dl (70-99)
[2024-03-27] MEDS: NOVOLOG FLEXPEN-MODERATE RESISTANCE SC ×3 (08:37→16:31)
[2024-03-27] MEDS: NSS (PRESERVATIVE FREE) 10 ML IV (08:48)
[2024-03-27] MEDS: OCUVITE SOFTGEL 1 CAP PO ×2 (08:48→20:38)
[2024-03-27] MEDS: LIPITOR 10 MG PO (08:48)
[2024-03-27] MEDS: LOW STRENGTH ASPIRIN 81 MG PO (08:48)
[2024-03-27] MEDS: NORVASC PO (08:49)
[2024-03-27] MEDS: PROTONIX IV 40 MG IV (08:49)
[2024-03-27] MEDS: TIMOPTIC 0.5% OPHTHALMIC SOLUTION 1 DROP BOTH EYES (08:49)
[2024-03-27] MEDS: TRUSOPT 2% OPHTHALMIC SOLUTION 1 DROP BOTH EYES ×2 (08:49→20:39)
[2024-03-27] MEDS: TOPROL XL PO (08:50)
--- NOTE | 2024-03-27 09:30 | W.PN.NEPH.HD ---
Progress Note - Hemodialysis
-
Date of Service: March 27, 2024
Duration: 30 minutes and 3 hours
Potassium Bath: 3
Calcium Bath: 2.5
Opti-Dialyzer: 160
Ultrafiltration: Other (1kg)
Blood Flow: 350
Dialysate Flow: 600
Heparin: no
EPO: [id number]
[2024-03-27] MEDS: RETACRIT 10000 UNITS IV (10:01)
[2024-03-27 11:20] LABS: Glucose - Point of Care 82 mg/dl (70-99)
--- NOTE | 2024-03-27 11:45 | W.PN.HOSP.TC ---
Today's Communication/Plan
-
Permacath placement
Discharge planning
Assessment / Plan
Assessment / Plan
Gen-AAOx3, NAD
HEENT-NC, AT, anicteric, clear oral mm
Neck-supple
CV-reg, no M, +S1/S2
Lungs-clear B/L
Abd-soft, NT, ND
Ext-no edema
Musculoskeletal-no cyanosis, clubbing
Skin-warm and dry
Neuro-grossly non-focal
Psych-calm, cooperative
Acute kidney injury -started hemodialysis this admission. Nephrology following. Was on Motrin prior to admission. Ellis catheter remains in place, can remove if okay with nephrology. Will need permacath placement prior to discharge & dialysis
clinic assignment.
Severe metabolic acidosis -resolved.
Hypokalemia -improved.
Hyponatremia -133, monitor for now.
Leukocytosis -asymptomatic. Afebrile. Doubt infection. Antibiotics discontinued. Leukocytosis resolved.
Chronic anemia -normocytic. Hemoglobin downtrending, 8.1 today. Received 1 unit of blood transfusion so far this admission. No evidence of bleeding. Stools have been brown. Not iron deficient based on labs. B12, folic acid normal.
Elevated lipase -asymptomatic. Pancreas normal on CT.
Delirium
Left humeral fracture - managed conservatively.
Essential hypertension
Hyperlipidemia
Gout
Full code
Dispo -will need SNF on discharge.
Anticipated Discharge: Within 24 hours
Subjective/Interval History
-
Date of Service: March 27, 2024
Patient seen and examined. Getting dialysis currently. No complaints.
Objective Data
-
Labs:
Laboratory Results
03/27/24
06:29
WBC 6.5
Hgb 8.1 L
Hct 24.2 L
Plt Count 236
Sodium 133 L
Potassium 3.9
Chloride 99
Carbon Dioxide 26
BUN 32 H
Creatinine 3.7 H
Glucose 80
Calcium 8.0 L
Vital Signs:
Vital Signs
Temp Pulse Resp BP Pulse Ox
98.5 F 70 17 144/67 95
03/27/24 11:21 03/27/24 11:21 03/27/24 11:21 03/27/24 11:21 03/27/24 11:21
I&O
03/26/24 03/27/24 03/28/24
06:59 06:59 06:59
Intake Total 360 / 360 720 / 720
Output Total 85 / 85 300 / 300
Balance 275 / 275 420 / 420
Review of Systems
-
History Source: Patient
All other systems: Reviewed and negative
--- NOTE | 2024-03-27 11:55 | CM ---
Met with patient at bedside.
HD today. Patient to get permanent dialysis cath today.
Discussed with patient & son [facility]. Will need authorization prior to dc
Called Britney liaison for [facility] - states she received clinicals. Will need tunnel cath information faxed once placed to [phone]
Rec call from Niurka from [facility] outpatient dialysis on [facility]
Niurka stated will secure chair time for patient on at 4pm or 4:15 potential start date 04/07 - will send confirmation.
Will give the confirmation to patient/ once received.
PLAN: [facility], pending bed availability -- After [facility] outpatient dialysis at [facility] report #: [phone]
[facility] Fax #: [phone]
[2024-03-27] MEDS: ANCEF 5 IV (15:00)
[2024-03-27 16:21] LABS: Glucose - Point of Care 77 mg/dl (70-99)
--- NOTE | 2024-03-27 17:36 | PTCARENOTE ---
Addendum entered by Viki Werner RN 03/27/24 18:16:
mcneal catheter pulled at 1630. pt due to urinate by 2029.
Original Note:
pt returned from IR with new R tunneled cath. pt aaox3, VSS and accucheck 77. pt eating in chair and son is at the bedside
[2024-03-27] MEDS: PEPCID 10 MG PO (20:38)
[2024-03-27 21:03] LABS: Glucose - Point of Care 90 mg/dl (70-99)
[2024-03-28] VITALS (8 sets, daily range): BP systolic 111–148; BP diastolic 58–66; PULSE 80–82; O2SAT 98–99; BMI 21.7
[2024-03-28] MEDS: REFRESH EYE DROPS (PF) BOTH EYES ×2 (03:00→16:31)
[2024-03-28] MEDS: REFRESH EYE DROPS (PF) 1 DROPS BOTH EYES ×5 (06:26→21:20)
[2024-03-28 07:19] LABS: Glucose - Point of Care 77 mg/dl (70-99)
[2024-03-28] MEDS: LIPITOR 10 MG PO (08:25)
[2024-03-28] MEDS: OCUVITE SOFTGEL 1 CAP PO ×2 (08:26→19:54)
[2024-03-28] MEDS: LOW STRENGTH ASPIRIN 81 MG PO (08:27)
[2024-03-28] MEDS: TOPROL XL 50 MG PO (08:28)
[2024-03-28] MEDS: NORVASC 5 MG PO (08:29)
[2024-03-28] MEDS: TRUSOPT 2% OPHTHALMIC SOLUTION 1 DROP BOTH EYES ×2 (08:30→19:54)
[2024-03-28] MEDS: TIMOPTIC 0.5% OPHTHALMIC SOLUTION 1 DROP BOTH EYES (08:30)
[2024-03-28] MEDS: NSS (PRESERVATIVE FREE) 10 ML IV (08:31)
[2024-03-28] MEDS: PROTONIX IV 40 MG IV (08:31)
[2024-03-28] MEDS: NOVOLOG FLEXPEN-MODERATE RESISTANCE SC ×2 (08:32→16:36)
--- NOTE | 2024-03-28 12:00 | W.PN.HOSP.TC ---
Today's Communication/Plan
-
Discharge planning
Assessment / Plan
Assessment / Plan
Gen-AAOx3, NAD
HEENT-NC, AT, anicteric, clear oral mm
Neck-supple
CV-reg, no M, +S1/S2
Lungs-clear B/L
Abd-soft, NT, ND
Ext-no edema
Musculoskeletal-no cyanosis, clubbing
Skin-warm and dry
Neuro-grossly non-focal
Psych-calm, cooperative
Acute kidney injury -started hemodialysis this admission. Nephrology following. Was on Motrin prior to admission. Ellis catheter remains in place, can remove if okay with nephrology. Permacath placed by IR 03/27.
Severe metabolic acidosis -resolved.
Hypokalemia -improved.
Hyponatremia -133, monitor for now.
Leukocytosis -asymptomatic. Afebrile. Doubt infection. Antibiotics discontinued. Leukocytosis resolved.
Chronic anemia -normocytic. Hemoglobin downtrending, 8.1, recheck tomorrow. Received 1 unit of blood transfusion so far this admission. No evidence of bleeding. Stools have been brown. Not iron deficient based on labs. B12, folic acid normal.
Elevated lipase -asymptomatic. Pancreas normal on CT.
Delirium
Left humeral fracture - managed conservatively.
Essential hypertension
Hyperlipidemia
Gout
Full code
Dispo -will need SNF on discharge. Med stable for discharge, case management aware.
Anticipated Discharge: Within 24 hours
Subjective/Interval History
-
Date of Service: March 28, 2024
Patient seen/examined, no complaints.
Objective Data
-
Vital Signs:
Vital Signs
Temp Pulse Resp BP Pulse Ox
98.1 F 81 18 140/58 98
03/28/24 11:16 03/28/24 11:16 03/28/24 11:16 03/28/24 11:16 03/28/24 11:16
I&O
03/27/24 03/28/24 03/29/24
06:59 06:59 06:59
Intake Total 720 / 720 1140 / 1140
Output Total 300 / 300 760 / 760
Balance 420 / 420 380 / 380
Review of Systems
-
History Source: Patient
All other systems: Reviewed and negative
[2024-03-28 12:18] LABS: Glucose - Point of Care 165 mg/dl (70-99)
--- NOTE | 2024-03-28 12:27 | W.PN.NEPH.PH ---
Today's Communication / Plan
-
HD tomorrow
Assessment/Plan
-
Assessment
acute kidney injury now on HD
hyperkalemia= presenting potassium 5.8
acute Gapped metabolic acidosis= presenting bicarbonate 5
status post humerus fracture
Diverticulitis
Plan:
HD tomorrow
renal biopsy would likely yield little new information that would change overall clinical course
rehab arrangements
-
-
Date of Service: March 28, 2024
CC / HPI / ROS
-
Chief Complaint:
Acute kidney injury
History of Present Illness:
Presented with nausea and vomiting and acute kidney injury requiring acute dialysis
tolerated HD yesterday
oliguric with mcneal
BP stable
Review of Systems:
No chest pain or shortness of breath at rest
no abd pain
Labs
-
Labs:
WBC 6.5 10^3/uL (4.8-10.8) 03/27/24 06:29
RBC 2.54 10^6/uL (4.20-5.40) L 03/27/24 06:29
Hgb 8.1 g/dL (12.0-16.0) L 03/27/24 06:29
Hct 24.2 % (37.0-47.0) L 03/27/24 06:29
Plt Count 236 10^3/uL (130-400) 03/27/24 06:29
Sodium 133 mmol/L (135-145) L 03/27/24 06:29
Potassium 3.9 mmol/L (3.5-5.1) 03/27/24 06:29
Chloride 99 mmol/L (98-107) 03/27/24 06:29
Carbon Dioxide 26 mmol/L (22-30) 03/27/24 06:29
BUN 32 mg/dl (7-17) H 03/27/24 06:29
Creatinine 3.7 mg/dL (0.6-1.0) H 03/27/24 06:29
eGFR 11.56 03/27/24 06:29
Glucose 80 mg/dl (70-99) 03/27/24 06:29
Calcium 8.0 mg/dl (8.4-10.2) L 03/27/24 06:29
Phosphorus 6.3 mg/dl (2.5-4.5) H 03/20/24 08:00
Albumin 2.9 g/dl (3.5-5.0) L 03/18/24 17:44
Physical Exam
-
Vital Signs:
Vital Signs
Temp Pulse Resp BP Pulse Ox
98.1 F 81 18 140/58 98
03/28/24 11:16 03/28/24 11:16 03/28/24 11:16 03/28/24 11:16 03/28/24 11:16
Cardiovascular:: Regular rate and rhythm
Respiratory:: Bilateral: Coarse
Lung Excursion:: Normal
Abdomen:: Nontender and Soft
Bowel Sounds:: Normal
Extremity Edema:: None: Bilateral:
--- NOTE | 2024-03-28 12:36 | CM ---
CM following rte: discharge planning.
Reviewed pt's chart, met with pt, spoke to pt's son Last over the phone and met with pt's and pt's son Jose to discuss discharge plan updates.
According to pt is medically stable to be discharged. Both pt and her family are aware, expressed their agreement. IMM reviewed, placed on chart, pt has a copy.
Both pt and her family asked [facility] as an options and after realizing that it will take some time to confirm a bed availability at [facility], both pt and her family expressed their agreement with [facility].
CM spoke to [facility] admissions liaison and she confirmed that pt is accepted for admission to [facility] when medically stable.
BENEDICT faxed tunnel cath information to [facility] dialysis unit at [phone]
BENEDICT initiated an auth from [employer], spoke to energy conservation representative Sabiha and based on information provided, pt is approved for 7 initial days for SNF level of care at [facility] from tomorrow 03/29/24 til04/04/24. Auth is: [id number]. fax to request
initial days [phone]
--- NOTE | 2024-03-28 12:43 | CM ---
Addendum entered by Nam Thompson 03/28/24 13:02:
Requested pt's clinical faxed to [employer] at [phone] for a review and to support pt's approval. .
Addendum entered by Nam Thompson 03/28/24 13:02:
Re1
Original Note:
CM following rte: discharge planning.
Reviewed pt's chart, met with pt, spoke to pt's son Last over the phone and met with pt's and pt's son Jose to discuss discharge plan updates.
According to pt is medically stable to be discharged. Both pt and her family are aware, expressed their agreement. IMM reviewed, placed on chart, pt has a copy.
Both pt and her family asked [facility] as an options and after realizing that it will take some time to confirm a bed availability at [facility], both pt and her family expressed their agreement with [facility].
BENEDICT spoke to [facility] admissions liaison and she confirmed that pt is accepted for admission to [facility] when medically stable.
BENEDICT faxed tunnel cath information to [facility] dialysis unit at [phone]
BENEDICT initiated an auth from [facility], spoke to distribution sales representative Sabiha and based on information provided, pt is approved for 7 initial days for SNF level of care at [facility] from tomorrow 03/29/24 til 04/04/24. Auth is: [id number]. fax to request
initial days [phone]
Approval information provided to [facility] SNF liaison and she confirmed that pt is accepted for admission tomorrow.
to arrange ambulance transportation BLS for [id number] 03/29/24. [facility] completed and left with .
[facility] nursing report: [phone]
Discharge instructions fax: [phone].
D/C plan: [facility] for a short term rehab and onsite HD treatment tomorrow 03/29/24.
[2024-03-28] MEDS: NOVOLOG FLEXPEN-MODERATE RESISTANCE 1 UNITS SC (13:00)
[2024-03-28 16:34] LABS: Glucose - Point of Care 103 mg/dl (70-99)
[2024-03-28] MEDS: PEPCID 10 MG PO (21:18)
[2024-03-28 21:26] LABS: Glucose - Point of Care 139 mg/dl (70-99)
[2024-03-29] MEDS: REFRESH EYE DROPS (PF) BOTH EYES ×3 (00:45→17:21)
[2024-03-29] MEDS: REFRESH EYE DROPS (PF) 1 DROPS BOTH EYES ×4 (02:50→14:30)
[2024-03-29 03:00] VITALS: BP 143/62
[2024-03-29 03:03] VITALS: BP 143/62
[2024-03-29 06:00] VITALS: BMI 21.6
[2024-03-29 07:00] VITALS: BP 145/66
[2024-03-29 07:15] LABS: Glucose - Point of Care 95 mg/dl (70-99)
[2024-03-29] MEDS: NOVOLOG FLEXPEN-MODERATE RESISTANCE SC ×3 (07:16→16:30)
[2024-03-29] MEDS: PROTONIX IV 40 MG IV (07:54)
[2024-03-29] MEDS: NORVASC 5 MG PO (07:55)
[2024-03-29] MEDS: TOPROL XL 50 MG PO (07:55)
[2024-03-29] MEDS: LIPITOR 10 MG PO (07:55)
[2024-03-29] MEDS: OCUVITE SOFTGEL 1 CAP PO (07:55)
[2024-03-29] MEDS: LOW STRENGTH ASPIRIN 81 MG PO (07:55)
[2024-03-29] MEDS: NSS (PRESERVATIVE FREE) 10 ML IV (07:55)
[2024-03-29] MEDS: TRUSOPT 2% OPHTHALMIC SOLUTION 1 DROP BOTH EYES (07:56)
[2024-03-29] MEDS: TIMOPTIC 0.5% OPHTHALMIC SOLUTION 1 DROP BOTH EYES (07:56)
[2024-03-29 10:57] VITALS: BP 113/53
[2024-03-29 11:27] LABS: Glucose - Point of Care 127 mg/dl (70-99)
--- NOTE | 2024-03-29 12:52 | W.PN.HOSP.TC ---
Today's Communication/Plan
-
Discharge
Assessment / Plan
Assessment / Plan
Gen-AAOx3, NAD
HEENT-NC, AT, anicteric, clear oral mm
Neck-supple
CV-reg, no M, +S1/S2
Lungs-clear B/L
Abd-soft, NT, ND
Ext-no edema
Musculoskeletal-no cyanosis, clubbing
Skin-warm and dry
Neuro-grossly non-focal
Psych-calm, cooperative
Acute kidney injury -started hemodialysis this admission. Nephrology following. Was on Motrin prior to admission. Ellis catheter remains in place, can remove if okay with nephrology. Permacath placed by IR 03/27.
Severe metabolic acidosis -resolved.
Hypokalemia -improved.
Hyponatremia -133, monitor for now.
Leukocytosis -asymptomatic. Afebrile. Doubt infection. Antibiotics discontinued. Leukocytosis resolved.
Chronic anemia -normocytic. Hemoglobin downtrending, 8.1, labs pending for today.. Received 1 unit of blood transfusion so far this admission. No evidence of bleeding. Stools have been brown. Not iron deficient based on labs. B12, folic acid
normal.
Elevated lipase -asymptomatic. Pancreas normal on CT.
Delirium
Left humeral fracture - managed conservatively.
Essential hypertension
Hyperlipidemia
Gout
Full code
Dispo -medically stable for discharge to SNF today after dialysis. Outpatient follow-up.
32 minutes spent in discharge process.
Anticipated Discharge: Today
Subjective/Interval History
-
Date of Service: March 29, 2024
Patient seen and examined. No complaints. Getting dialysis now.
Objective Data
-
Vital Signs:
Vital Signs
Temp Pulse Resp BP Pulse Ox
98.2 F 78 17 113/53 100
03/29/24 10:57 03/29/24 10:57 03/29/24 10:57 03/29/24 10:57 03/29/24 10:57
I&O
03/28/24 03/29/24 03/30/24
06:59 06:59 06:59
Intake Total 1140 / 1140 860 / 860
Output Total 760 / 760
Balance 380 / 380 860 / 860
Review of Systems
-
History Source: Patient
All other systems: Reviewed and negative
--- NOTE | 2024-03-29 12:54 | W.DS.TRANS ---
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
-
Discharge Instructions:
Discharge Diagnosis/Procedures Acute renal failure, metabolic acidosis,
electrolyte abnormalities, anemia, left humeral
fracture
Diet Low Residue
Activity As tolerated,With assistance
Driving Restrictions No driving
Bathing Restrictions None
Instructions:
Stand-Alone Forms:
Changes to Home Medications: No
Discharge Medications:
DC Medications w/original date entered in [employer]
aspirin 81 mg chewable tablet 81 mg PO DAILY Blood Clot Prevention/Tx 01/01/13
atorvastatin 10 mg tablet 10 mg PO DAILY High Cholesterol 01/01/13
metoprolol succinate 50 mg tablet,extended release 24 hr 50 mg PO DAILY Blood Pressure 01/02/13
dorzolamide 2 % eye drops 1 drp BOTH EYES BID Eye Condition 02/17/24
lansoprazole 15 mg capsule,delayed release 15 mg PO DAILY Gastrointestinal Issue 02/17/24
netarsudil 0.02 %-latanoprost 0.005 % eye drops (Rocklatan) 1 drp BOTH EYES QPM Eye Condition 02/17/24
timolol 0.5 % eye drops 1 drp BOTH EYES DAILY Eye Condition 02/17/24
vitamins A,C,N-ebqh-smjlmw 2,148 mcg-113 mg-45 mg-17.4 mg tablet (PreserVision AREDS) 1 tab PO BID Supplement 03/14/24
polyethylene glycol 3350 17 gram oral powder packet (Miralax) 17 g PO DAILY Gastrointestinal Issue 03/18/24
povidone (PF) 0.5 % eye drops (iVizia (PF)) 1 drp ophthalmic (eye) Q3H Eye Condition 03/18/24
sennosides 8.6 mg tablet (senna) 17.2 mg PO BID Gastrointestinal Issue 03/18/24
amlodipine 5 mg tablet 5 mg PO DAILY #0 tabs 03/28/24
famotidine 20 mg tablet 10 mg (1/2 x 20 mg) PO HS #0 tabs 03/28/24
Home Medication Changes
Pending Results: No
[2024-03-29] MEDS: RETACRIT 8000 UNITS IV (13:14)
[2024-03-29 13:32] LABS: Blood Urea Nitrogen 23 mg/dl (7-17); Calcium 8.1 mg/dl (8.4-10.2); Carbon Dioxide 27 mmol/L (22-30); Chloride 98 mmol/L (98-107); Estimated Creatinine Clearance 11 ml/min; Glucose 90 mg/dl (70-99); Potassium 3.3 mmol/L (3.5-5.1); Sodium 132 mmol/L (135-145); eGFR 14.86
--- NOTE | 2024-03-29 13:59 | W.PN.NEPH.HD ---
Assessment
-
Seen on HD> no complaints. VSS, access ok
for [facility]
Progress Note - Hemodialysis
-
Date of Service: March 29, 2024
Duration: 30 minutes and 3 hours
Potassium Bath: 3
Calcium Bath: 2.5
Opti-Dialyzer: 160
Ultrafiltration: Other (kg)
Blood Flow: 400
Dialysate Flow: 600
Heparin: no
EPO: 8000 units
[2024-03-29 14:17] LABS: % Basophils 0.6 % (0-2); % Eosinophils 1.9 % (0-6); % Immature Granulocytes 0.9 % (0-0.5); % Lymphocytes 25.6 % (20.5-51.1); Absolute Eosinophils 0.1 10^3/uL (0-0.7); Absolute Immature Granulocytes 0.1 10^3/uL (0-0.05); Absolute Lymphocytes 1.7 10^3/uL (1.2-3.4); Absolute Monocytes 0.8 10^3/uL (0.1-0.6); Absolute Neutrophils 3.8 10^3/uL (1.4-6.5); Hemoglobin 7.6 g/dL (12.0-16.0); Mean Corpuscular Hgb 31.7 pg (27.0-31.0); Mean Corpuscular Volume 95.8 fL (81.0-99.0); Mean Platelet Volume 11.1 fL (7.4-10.4); Nucleated Red Blood Cells % 0 %; Platelet Count 240 10^3/uL (130-400); Red Cell Dist. Width 18.1 % (11.5-14.5); White Blood Cell Count 6.5 10^3/uL (4.8-10.8)
[2024-03-29 15:43] VITALS: BP 150/67
[2024-03-29] MEDS: HEPARIN 4000 UNITS INTRACATH (15:58)
--- NOTE | 2024-03-29 16:00 | CM ---
Reviewed the chart notes and spoke with the patient at the bedside. Provided fax received from [facility] that tentative start at [facility] is April 07, 2024 M-W-F 4:15pm chair time. Patient to discharge to [facility] today.
Plan: Discharge to [facility] today via ambulance.
[facility] nursing report: [phone]
Discharge instructions fax: [phone]
[2024-03-29 16:28] LABS: Glucose - Point of Care 81 mg/dl (70-99)
--- NOTE | 2024-03-29 17:26 | PTCARENOTE ---
Patient discharged to [facility], transported [facility]. This RN removed patient's IV and called report to Patricia at facility. Discharge vitals taken by tech within 4 hours of discharge. Patient received HD prior to discharge - 1 kilo
off. Patient ate dinner prior to transport, blood sugar 81. Patient dressed in own clothes and belongings gathered in room by this RN and tech prior to discharge, family at bedside to assist in gathering belongings. L sling in place for transport.
== END 2024-03-29 17:31 | DRG 674 ==
LOC: 2 NORTH 15:41
PROVIDERS: Emergency Medicine; Hospitalist; Internal Medicine; Radiology Diagnostic Radiology; Radiology Vascular & Interventional Radiology; Specialist; ADMITTING PHYSICIAN Internal Medicine; ATTENDING PHYSICIAN Hospitalist; CONSULT PHYSICIAN Internal Medicine Critical Care Medicine; CONSULT PHYSICIAN Internal Medicine Nephrology; EMERGENCY PHYSICIAN Emergency Medicine; FAMILY PHYSICIAN Family Medicine
PROC: 02H633Z Insertion of Infusion Device into Right Atrium, Percutaneous Approach (ICD-10-PCS; 2024-03-18)
PROC: B5181ZA Fluoroscopy of Superior Vena Cava using Low Osmolar Contrast, Guidance (ICD-10-PCS; 2024-03-18)
PROC: 5A1D70Z Performance of Urinary Filtration, Intermittent, Less than 6 Hours Per Day (ICD-10-PCS; 2024-03-19)
PROC: 30233N1 Transfusion of Nonautologous Red Blood Cells into Peripheral Vein, Percutaneous Approach (ICD-10-PCS; 2024-03-19)
PROC: 05HM33Z Insertion of Infusion Device into Right Internal Jugular Vein, Percutaneous Approach (ICD-10-PCS; 2024-03-27)
PROC: B5131ZA Fluoroscopy of Right Jugular Veins using Low Osmolar Contrast, Guidance (ICD-10-PCS; 2024-03-27)
PROC: 02PAX3Z Removal of Infusion Device from Heart, External Approach (ICD-10-PCS; 2024-03-27)
PROC: 0JH63XZ Insertion of Tunneled Vascular Access Device into Chest Subcutaneous Tissue and Fascia, Percutaneous Approach (ICD-10-PCS; 2024-03-27)
DX: N17.9 Acute kidney failure, unspecified (principal); E87.1 Hypo-osmolality and hyponatremia; E87.20 Acidosis, unspecified; K57.32 Diverticulitis of large intestine without perforation or abscess without bleeding; F05 Delirium due to known physiological condition; M25.512 Pain in left shoulder; K59.00 Constipation, unspecified; E78.00 Pure hypercholesterolemia, unspecified; R04.0 Epistaxis; H35.30 Unspecified macular degeneration; H40.9 Unspecified glaucoma; D69.6 Thrombocytopenia, unspecified; R73.9 Hyperglycemia, unspecified; M10.9 Gout, unspecified; K76.0 Fatty (change of) liver, not elsewhere classified; J30.9 Allergic rhinitis, unspecified; I10 Essential (primary) hypertension; E87.6 Hypokalemia; E87.5 Hyperkalemia; D64.9 Anemia, unspecified; S42.302D Unspecified fracture of shaft of humerus, left arm, subsequent encounter for fracture with routine healing; W19.XXXD Unspecified fall, subsequent encounter; Z90.710 Acquired absence of both cervix and uterus; Z79.82 Long term (current) use of aspirin; Z11.52 Encounter for screening for COVID-19; Z91.148 Patient's other noncompliance with medication regimen for other reason; Z75.1 Person awaiting admission to adequate facility elsewhere
CPT/HCPCS: 36556; 36558; 71045; 74176; 76937; 77001; 80048; 80053; 80061; 81003; 82570; 82607; 82728; 82746; 82784; 82805; 82962; 83010; 83036; 83540; 83550; 83615; 83690; 83735; 84100; 84132; 84155; 84156; 84165; 84300; 85025; 85027; 85610; 85730; 86334; 86704; 86706; 86803; 86850; 86900; 86901; 86920; 87040; 87070; 87324; 87340; 87449; 87502; 87798; 87811; 93005; 94640; 96361; 96374; 97116; 97163; 97167; 97530; 97535; 99152; 99153; 99291; C1750; G0257; P9016; P9047; Q5106

== ENCOUNTER → 2024-05-05 12:37 | Outpatient (REF) | payer OTHER, SELFPAY | LOC: OLAB 12:37 | PROVIDERS: ATTENDING PHYSICIAN Specialist | DX: N18.6 End stage renal disease (principal) | CPT/HCPCS: 82565 ==

== ENCOUNTER → 2024-05-12 14:01 | Outpatient (REF) | payer OTHER, SELFPAY | LOC: REG 14:01 | PROVIDERS: ATTENDING PHYSICIAN Internal Medicine Nephrology | DX: Z86.19 Personal history of other infectious and parasitic diseases (principal); Z14.8 Genetic carrier of other disease; M79.89 Other specified soft tissue disorders | CPT/HCPCS: 36415; 82565 ==

== ENCOUNTER → 2024-05-14 09:47 | Outpatient (REF) | payer OTHER, SELFPAY ==
[2024-05-14 09:53] VITALS: BP 191/84; BP_SYST 88
== END ==
LOC: RADI 09:47
PROVIDERS: ATTENDING PHYSICIAN Internal Medicine Nephrology; FAMILY PHYSICIAN Family Medicine
DX: Z49.01 Encounter for fitting and adjustment of extracorporeal dialysis catheter (principal); N18.6 End stage renal disease
CPT/HCPCS: 36589

== ENCOUNTER → 2024-07-26 08:47 | Outpatient (REF) | payer OTHER, SELFPAY | LOC: RCS 08:47 | PROVIDERS: ATTENDING PHYSICIAN Family Medicine | DX: I27.20 Pulmonary hypertension, unspecified (principal); I50.9 Heart failure, unspecified | CPT/HCPCS: 93306 ==

== ENCOUNTER → 2024-08-06 08:29 | Outpatient (REF) | payer OTHER, SELFPAY | LOC: WDC 08:29 | PROVIDERS: ATTENDING PHYSICIAN Family Medicine | DX: Z12.31 Encounter for screening mammogram for malignant neoplasm of breast (principal) | CPT/HCPCS: 77063; 77067 ==

== ENCOUNTER → 2025-01-05 11:11 | Outpatient (REF) | payer OTHER, SELFPAY | LOC: RCS 11:11 | PROVIDERS: ATTENDING PHYSICIAN Internal Medicine Cardiovascular Disease; FAMILY PHYSICIAN Family Medicine | DX: I35.0 Nonrheumatic aortic (valve) stenosis (principal) | CPT/HCPCS: 93306 ==